=== PATIENT | female | born 1950 | race Caucasian/White ===

== ENCOUNTER → 2019-08-08 09:17 | Outpatient (CLI) | payer MEDICARE, SELFPAY ==
--- NOTE | ~2019-08-08 | XR_ITS ---
XR lumbar spine 6V w bending DATE: 08/08/2019 10:43 INDICATION: Low back pain TECHNIQUE: AP, lateral, bilateral oblique, coned lumbosacral views. Flexion and extension upright lat eral views. COMPARISON: None FINDINGS: There is minimal levoscoliosis of the lumbar spine. There is moderately prominent diffuse osteopenia. There is degenerative change that suggests facet joints particularly at L4-5 and L5-S1 with associate d grade 1 anterolisthesis at L4-5. Moderate degenerative disc disease at L4-5. The remaining lumbar interspaces are well preserved. No instability on flexion or extension. No fracture or bone destruction. The lumbar pedicles are intact. No spondylolysis. The sacroiliac joints are normal. There is abdominal aortic calcification, without evidence of aneurysm. IMPRESSION: Osteopenia Prominent degenerative changes at the apophyseal joints with associated grade 1 anterolisthesis at L4 -5 Moderate degenerative disc disease at L4-5 Reviewed, dictated and finalized at location B. IMPRESSION: Osteopenia Prominent degenerative changes at the apophyseal joints with associated grade 1 anterolisthesis at L4-5 Moderate degenerative disc disease at L4-5
--- NOTE | ~2019-08-08 | XR_ITS ---
XR cervical spine min 6V DATE: 08/08/2019 10:43 INDICATION: Neck pain TECHNIQUE: AP, odontoid, swimmer's, open-mouth, neutral, lateral flexion lateral views COMPARISON: None FINDINGS: There is reversal of cervical curvature. There is minimal anterolisthesis at C2-3. There is multi-level moderately severe There is uncovertebral joint spurring throughout the mid and lower cervical spine. Degenerative disc disease at C3-4, C4-5, C5-6 and C6-7. There is posterior fusion at C2-3. No fracture or dislocation or locked facet. C1 and C2 are normally aligned and the odontoid process is intact. No prevertebral soft tissue swelling. No instability on flexion or extension. IMPRESSION: Reversal cervical curvature Extensive degenerative changes from C3-4 through C6-7 Reviewed, dictated and finalized at location B.
== END ==
PROVIDERS: Visit Provider Chiropractor Rehabilitation
DX: M51.36 Other intervertebral disc degeneration, lumbar region (principal)
CPT/HCPCS: 72052; 72114

== ENCOUNTER → 2019-08-26 10:05 | Outpatient (CLI) | payer MEDICARE, SELFPAY ==
--- NOTE | ~2019-08-26 | MR_ITS ---
EXAMINATION: MR cervical spine wo con DATE: 08/26/2019 11:15 INDICATION: Cervical radiculopathy. TECHNIQUE: Magnetic resonance imaging (MRI) of the cervical spine was performed without intravenous c ontrast. Sequences included sagittal T2-weighted FSE, sagittal STIR FSE, sagittal T1-weighted FSE, ax ial MERGE, and axial T2-weighted FSE. COMPARISON: Cervical spine radiographs 08/08/2019 FINDINGS: There is kyphosis of cervical spine. There is 2 mm retrolisthesis of C3 on C4 and C6 on C7. Vertebral body heights are normal. There is severely decreased disc height at C3-C4, C5-C6, and C6-C 7 and moderately decreased disc height at C4-C5. The spinal cord signal intensity is normal. The foll owing disc levels are specifically discussed: C2-C3: The disc does not extend beyond the endplate margin. There is no uncovertebral joint osteoarth ritis. There is mild left facet joint osteoarthritis. There is ankylosis of right facet joint with mo derate hypertrophy. There is mild right neural foraminal stenosis. There is no central canal stenosis . C3-C4: The disc is bulging. There is severe bilateral uncovertebral joint osteoarthritis. There is se fernando bilateral facet joint osteoarthritis. There is moderate bilateral neural foraminal stenosis. The re is mild central canal stenosis with ventral indentation of spinal cord. C4-C5: The disc is bulging. There is severe bilateral uncovertebral joint osteoarthritis. There is mo derate right facet joint osteoarthritis. There is ankylosis of left facet joint with moderate hypertr ophy. There is mild right and moderate left neural foraminal stenosis. There is mild central canal st enosis. C5-C6: The disc is bulging. There is severe bilateral uncovertebral joint osteoarthritis. There is se fernando bilateral facet joint osteoarthritis. There is mild right and moderate left neural foraminal davin nosis. There is moderate central canal stenosis with ventral and dorsal indentation of spinal cord. C6-C7: The disc is bulging. There is severe bilateral uncovertebral joint osteoarthritis. There is se fernando bilateral facet joint osteoarthritis. There is moderate bilateral neural foraminal stenosis. The re is mild central canal stenosis. C7-T1: The disc does not extend beyond the endplate margin. There is no uncovertebral joint osteoarth ritis. There is severe bilateral facet joint osteoarthritis. There is mild bilateral neural foraminal stenosis. There is no central canal stenosis. IMPRESSION: 1. Severe cervical spondylosis. Reviewed, dictated and finalized at location A.
--- NOTE | ~2019-08-26 | MR_ITS ---
EXAMINATION: MR lumbar spine wo con DATE: 08/26/2019 11:16 INDICATION: Lumbar radiculopathy. TECHNIQUE: Magnetic resonance imaging (MRI) of the lumbar spine was performed without intravenous con trast. Sequences included sagittal T2-weighted FSE, sagittal T2-weighted FS FSE, sagittal T1-weighted FSE, and axial T2-weighted FSE. COMPARISON: Lumbar spine radiographs 08/08/2019 FINDINGS: There is 5 degrees levocurvature of thoracolumbar spine. There is 3 mm anterolisthesis of L 4 on L5. Vertebral body heights are normal. There is mildly decreased disc height at L4-L5. The dista l spinal cord signal intensity is normal. The conus medullaris is at L1. The following disc levels ar e specifically discussed: L1-L2: The disc does not extend beyond the endplate margin. There is mild bilateral facet joint osteo arthritis. There is no neural foraminal stenosis. There is no central canal stenosis. L2-L3: The disc is mildly bulging. There is moderate right and mild left facet joint osteoarthritis. There is mild bilateral neural foraminal stenosis. There is mild central canal stenosis. L3-L4: The disc is mildly bulging. There is moderate bilateral facet joint osteoarthritis. There is m ild bilateral neural foraminal stenosis. There is mild central canal stenosis. L4-L5: The disc is bulging. There is severe bilateral facet joint osteoarthritis. There is moderate b ilateral neural foraminal stenosis. There is mild central canal stenosis. L5-S1: The disc does not extend beyond the endplate margin. There is severe bilateral facet joint ost eoarthritis. There is mild left neural foraminal stenosis. There is no central canal stenosis. IMPRESSION: 1. Moderate spondylosis at L4-L5. Mild spondylosis at other levels. Reviewed, dictated and finalized at location A.
== END ==
DX: M47.22 Other spondylosis with radiculopathy, cervical region (principal); M47.816 Spondylosis without myelopathy or radiculopathy, lumbar region
CPT/HCPCS: 72141; 72148

== ENCOUNTER 2020-08-29 09:07 | Outpatient (CLI) | payer MEDICARE, SELFPAY ==
--- NOTE | ~2020-08-29 | CT_ITS ---
EXAMINATION: CT lung screening DATE: 08/29/2020 09:25 INDICATION: History of tobacco dependence TECHNIQUE: Computed tomography (CT) of the chest was performed without intravenous contrast. The dose -length product was 89.17 mGy-cm. Automated exposure control and iterative reconstruction technique w ere employed. COMPARISON: Chest x-ray dated 11/23/2013 FINDINGS: Heart size is normal. There is atherosclerosis of the aorta and coronary arteries. No signi ficant pleural or pericardial effusion. No thoracic lymphadenopathy. There are multiple scattered sma ll bilateral pulmonary nodules, all measuring 4 mm or less. There is apical pleural thickening/scarri ng. There is a linear fissural nodule on the left, likely benign. Mild emphysema. No endobronchial le sions. IMPRESSION: 1. Lung-RADS category 2: Benign appearance or behavior. Continue annual screening with noncontrast lo w-dose chest CT in 12 months. Reviewed, dictated and finalized at location B. IMPRESSION: 1. Lung-RADS category 2: Benign appearance or behavior. Continue annual screeni ng with noncontrast low-dose chest CT in 12 months.
== END 2020-08-29 09:08 | disposition home or self-care (01) ==
PROVIDERS: PCP Family Medicine; Visit Provider Family Medicine
DX: Z12.2 Encounter for screening for malignant neoplasm of respiratory organs (principal); Z87.891 Personal history of nicotine dependence
CPT/HCPCS: 71271

== ENCOUNTER 2020-12-28 16:50 | Emergency (ER) | payer MEDICARE, SELFPAY ==
--- NOTE | ~2020-12-28 | XR_ITS ---
EXAMINATION: XR foot LT min 3V DATE: 12/28/2020 17:03 INDICATION: Left foot pain TECHNIQUE: Dorsoplantar, lateral, and 2 oblique views of the left foot were obtained. COMPARISON: None. FINDINGS: Bone alignment is normal. There is no acute fracture mild deformity of the third metatarsal head may reflect prior injury. There is mild osteoarthritis in multiple interphalangeal joints. Mode rate osteoarthritis is noted at the first metatarsophalangeal joint. There is dorsal soft tissue swel ling of the foot. IMPRESSION: 1. No acute osseous abnormality. Reviewed, dictated and finalized at location A.
[2020-12-28 17:03] VITALS: BP 157/84; PULSE 111; RESP 18; TEMP 36.6; O2SAT 100
--- NOTE | 2020-12-28 17:23 | ED.LOWEXIN ---
HPI - Extremity Injury (Lower) General Chief Complaint: Extremity Injury, Lower Stated Complaint: lt foot injury Source: patient and RN notes reviewed Limitations: no limitations History of Present Illness HPI Narrative: The patient, on several medications, presents with left ankle discomfort. Patient states she slipped this morning on rain slick surfaces, resulting in flexion of her left lower extremity and twisting and scraping her ankle. She complains of mild pain and abrasion, that is worse with activity, better at rest especially on the lateral and extensor retinaculum aspects. No bleeding, deformity, but there are abrasions Related Data Home Medications Medication Instructions Recorded Confirmed omeprazole 20 mg capsule,delayed 20 mg PO DAILY 02/28/20 12/28/20 release Allergies Allergy/AdvReac Type Severity Reaction Status Date / Time No Known Allergies Allergy Verified 12/28/20 16:57 Review of Systems Review of Systems: General/Constitutional: No weight loss,fever Eyes: N0: Redness,discharge Ears/Nose/Throat: No: Epistaxis,ear discharge Respiratory: Denies: Hemoptysis Gastrointestinal: No Vomiting, Bleeding-rectal Skin: No Lumps, eruption Neurologic: No Focal Weakness,Sz Hematologic: Denies: Petechiae/Purpura Psychiatric: No: Suicida ideationl All Other Systems: Reviewed and Negative PMF Past Medical History Medical History Chronic neck and back pain Dyslipidemia Essential (primary) hypertension GERD without esophagitis Hiatal hernia Hyperactivity of bladder Hypothyroidism (acquired) Irritable bowel syndrome with diarrhea Numbness and tingling of right lower extremity (~02/23/19) Periodic limb movement disorder Pre-diabetes Right carpal tunnel syndrome RLS (restless legs syndrome) Schatzki's ring Surgical History Surgical History Hx of hysterectomy, total (~1994) Family History Family History Other Hypertension Social History Social History Smoking packs per day: 0.75 Smoking cigarettes per day: 15.0 Years smoked: 50 Smoking pack-years: 37.50 Smoking status: Current every day smoker Tobacco type: cigarettes Second hand tobacco smoke exposure: Yes Alcohol intake: current Comments At time of signature, agree with nursing past medical, surgical, social and family history. There is no relevant family history pertinent to the presenting complaint Exam Narrative: General Appearance: Well appearing, Conjunctiva clear Ears: External ear normal, Auditory canal normal Nose: Normal nose, Nares clear Mouth/Throat: Normal appearing, Normal lips Neck: Supple Respiratory: Airway patent, No respiratory distress MS-ankle: Normal strength (mostly intact, limited flexion/extension by pain), Tenderness ( laterally, with mild decreased ROM), Scant swelling (laterally), Other (no anterior drawer, no collateral laxity, no Achilles tenderness, no fifth MT tenderness) Skin: Warm, Dry, Normal color; abrasions extensor retinaculum area Neurological: A&O x3, Normal affect Course Course Emergency Course: Films visualized, interpreted by radiologist, agree, normal see report Vital Signs Vital signs: Vital Signs Temperature 97.8 F 12/28/20 17:03 Pulse Rate 111 H 12/28/20 17:03 Respiratory Rate 18 12/28/20 17:03 Blood Pressure 157/84 H 12/28/20 17:03 Pulse Oximetry 100 12/28/20 17:03 Temperature 97.8 F 12/28/20 17:03 Pulse Rate 111 H 12/28/20 17:03 Respiratory Rate 18 12/28/20 17:03 Blood Pressure 157/84 H 12/28/20 17:03 Pulse Oximetry 100 12/28/20 17:03 Discharge Plan Discharge Clinical Impression: Left ankle sprain Qualifiers: Encounter type: initial encounter Involved ligament of ankle: unspecified
== END 2020-12-28 17:25 | disposition home or self-care (01) ==
PROVIDERS: Emergency Provider Emergency Medicine; PCP Family Medicine
DX: S93.402A Sprain of unspecified ligament of left ankle, initial encounter (principal); W01.0XXA Fall on same level from slipping, tripping and stumbling without subsequent striking against object, initial encounter; F17.210 Nicotine dependence, cigarettes, uncomplicated; E78.5 Hyperlipidemia, unspecified; I10 Essential (primary) hypertension; K21.9 Gastro-esophageal reflux disease without esophagitis; E03.9 Hypothyroidism, unspecified; R73.03 Prediabetes; G25.81 Restless legs syndrome; K22.2 Esophageal obstruction
CPT/HCPCS: 73630; 99213; G0463

== ENCOUNTER 2022-03-05 09:54 | Outpatient (CLI) | payer MEDICARE, SELFPAY ==
[2022-03-05 19:14] LABS: Alanine Aminotransferase 19 U/L (6-35); Albumin Level 4.3 g/dL (3.5-5.1); Alkaline Phosphatase 65 U/L (38-126); Anion Gap 9 mmol/L (8-16); Aspartate Amino Transferase 30 U/L (14-36); Bilirubin,Total 0.6 mg/dL (0.2-1.3); Blood Urea Nitrogen 15 mg/dL (7-17); Calcium 9.7 mg/dL (8.4-10.2); Carbon Dioxide 29 mmol/L (22-30); Chloride 102 mmol/L (98-107); Cholesterol 199 mg/dL (0-200); Estimated Glomerular Filt Rate > 60; Glucose 106 mg/dL (65-110); HDL Direct 44 mg/dL; Potassium 3.9 mmol/L (3.4-5.0); Sodium 140 mmol/L (137-145); Triglycerides 177 mg/dL (<150)
[2022-03-05 19:15] LABS: Hemoglobin A1C 5.8 % (<5.7)
[2022-03-05 19:23] LABS: Basophils Absolute Auto 0.1 K/mm3 (0.0-0.1); Basophils Percent Auto 0.6 % (0.2-1.2); Eosinophils Absolute Auto 0.1 K/mm3 (0-0.3); Eosinophils Percent Auto 1.4 % (0-4.4); Hematocrit 47.7 % (37.0-47.0); Hemoglobin 15.5 g/dL (12.0-15.0); Immature Granulocyte Absolute 0.02 K/mm3 (0.00-0.031); Immature Granulocyte Percent A 0.3 % (0-0.5); Lymphocytes Absolute Auto 1.73 K/mm3 (0.9-3.2); Lymphocytes Percent Auto 22.2 % (18.3-44.2); Mean Corpuscular HGB Conc 32.5 g/dl (32-36); Mean Corpuscular Hemoglobin 31.1 pg (26-34); Mean Corpuscular Volume 95.6 fl (80-100); Mean Platelet Volume 11.7 fl (7.4-10.4); Monocytes Absolute Auto 0.9 K/mm3 (0.1-0.6); Monocytes Percent Auto 11.7 % (2.6-8.5); Neutrophils Percent Auto 63.8 % (45.5-73.1); Platelet Count Result 225 k/mm3 (150-375); Red Blood Count 4.99 M/mm3 (4.2-5.4); Red Cell Distribution Width 14.4 % (11.5-14.5); White Blood Count 7.8 K/mm3 (4.5-10.0)
[2022-03-05 19:25] LABS: LDL Cholesterol Direct 113 mg/dL
[2022-03-05 20:08] LABS: Thyroid Stimulating Hormone Reflex 0.557 uIU/mL (0.465-4.68)
== END 2022-03-05 09:55 | disposition home or self-care (01) ==
LOC: ANHGOSHLAB 09:57
PROVIDERS: PCP Family Medicine; Visit Provider Family Medicine
DX: R73.03 Prediabetes (principal); E78.5 Hyperlipidemia, unspecified; G25.81 Restless legs syndrome; E53.8 Deficiency of other specified B group vitamins; E55.9 Vitamin D deficiency, unspecified; I10 Essential (primary) hypertension
CPT/HCPCS: 36415; 80053; 80061; 82306; 82607; 83036; 84443; 85025

== ENCOUNTER → 2022-03-13 08:20 | Outpatient (CLI) | payer MEDICARE, SELFPAY ==
--- NOTE | ~2022-03-13 | CT_ITS ---
EXAMINATION: CT lung screening DATE: 03/13/2022 08:33 INDICATION: Personal history of nicotine dependence, current smoker with 50 pack year history TECHNIQUE: Computed tomography (CT) of the chest was performed without intravenous contrast. The dose -length product (DLP) was 46.56 mGy-cm. Automated exposure control and iterative reconstruction techn ique were employed. COMPARISON: 08/29/2020 FINDINGS: There is mild emphysema. A 6 mm subpleural nodule of the right lower lobe previously measur ed 3 mm (image 76). Additional small pulmonary nodules measuring up to 4 mm are stable. No pleural ef fusion or pneumothorax. The lungs are free of acute opacities. No pathologically enlarged thoracic ly mph nodes are identified. The heart size is normal. Calcified coronary artery atherosclerosis is note d. There is moderate thoracic spondylosis. IMPRESSION: 1. Lung-RADS category 4A: Suspicious. Findings for which additional diagnostic testing is recommended . Follow-up low-dose CT in three months is recommended. Reviewed, dictated and finalized at location F. IMPRESSION: 1. Lung-RADS category 4A: Suspicious. Findings for which additional diagnostic testing is recommended. Follow-up low-dose CT in three months is recommended.
== END ==
PROVIDERS: PCP Family Medicine; Visit Provider Family Medicine
DX: Z12.2 Encounter for screening for malignant neoplasm of respiratory organs (principal); Z87.891 Personal history of nicotine dependence; R91.8 Other nonspecific abnormal finding of lung field
CPT/HCPCS: 71271

== ENCOUNTER 2022-04-28 09:50 | Outpatient (CLI) | payer MEDICARE, SELFPAY ==
--- NOTE | 2022-04-28 11:30 | NEURO_ITS ---
Impression: # Complains of numbness of hands. # Right Carpal Tunnel Syndrome involving sensory component. # No ulnar neuropathy. # Normal needle/EMG exam. Motor Nerve Conduction Upper Extremities Median Nerve Conduction Velocity (m/sec) Terminal Latency (msec) Response Voltage(mV) Elbow-Wrist Wrist Elbow Wrist Right 56 3.8 3 3 Left 58 3.5 5 5 Ulnar Nerve Conduction Velocity (m/sec) Terminal Latency (msec) Response Voltage(mV) Above Elbow Below Elbow Wrist Above Elbow Below Elbow Wrist Right 55 2.4 7 8 Left 56 2.7 6 8 F-Wave Latency Median (ms) Ulnar (ms) Right 28.8 28.3 Left 27.6 28.9 Sensory Nerve Conduction Upper Extremities Median Nerve Stimulation Terminal Latency (msec) Wrist/Digit Response Voltage (uV) Wrist Right NR/NR NR/NR Left 3.8/3.8 53/53 Ulnar Nerve Stimulation Terminal Latency (msec) Wrist/Digit Response Voltage (uV) Wrist Right 2.5 39 Left 2.4 49 Radial Nerve Terminal Latency (msec) Response Voltage(mV) Right 2.2 34 Left 2.0 14 Left Right Muscles Examined Fibrillation Fasciculation Scarcity Voltage Duration Left Right Left Right Left Right Left Right Left Right Deltoid Biceps X X Brachioradialis Triceps X X Pronator Teres X X Ext Indicis X X Ext Digitorum X X Abd Poll Brev X X 1st Dorsal Interosseus Paraspinals MTDD
== END 2022-04-28 09:51 | disposition home or self-care (01) ==
LOC: ANHNEURO 09:52
PROVIDERS: PCP Family Medicine; Visit Provider Family Medicine
DX: R20.0 Anesthesia of skin (principal); G56.01 Carpal tunnel syndrome, right upper limb
CPT/HCPCS: 95886; 95911

== ENCOUNTER → 2022-06-26 08:19 | Outpatient (CLI) | payer MEDICARE, SELFPAY ==
--- NOTE | ~2022-06-26 | CT_ITS ---
Clinical Indication: Abnormal CT scan of the chest, nicotine dependence CT Scan of the Chest with Contrast: Technique: Contiguous sections were acquired throughout the chest after intravenous administration of 75 cc of Omnipaque 350. Dose reduction technique was used on this scan by utilizing automated exposu re control and iterative reconstruction technique. The dose-length product (DLP) was 184.62 mGy-cm. COMPARISON: 03/13/2022 and 08/29/2020 Findings: There is no evidence of any significant mediastinal, hilar or axillary lymphadenopathy. There is no f illing defect in the pulmonary arterial tree to suggest pulmonary embolus. There is no evidence of ao rtic dissection or aneurysm. Coronary artery calcifications are present. There is no evidence of pleural or pericardial effusion. 6 mm pleural-based nodule the right lower lobe is unchanged from prior exam (axial image 71). Additio nal 5 mm pleural-based nodule more inferiorly in the right lower lobe is also unchanged (axial image 98). Several additional smaller pulmonary nodules are unchanged. Biapical scarring unchanged. Images through the upper abdomen reveal 4.0 x 3.1 cm left adrenal mass, which was partially imaged on prior exam from 08/29/2020.. Impression: Subcentimeter pulmonary nodules, as detailed above, stable from most recent prior exam. Recommend add itional 12 month follow-up CT to assure continued stability. 4.0 x 3.1 cm left adrenal mass. This is partially imaged on prior exam from 08/29/2020, and is probabl y without significant interval change. Relative stability over this time interval is compatible with benignity. Reviewed, dictated and finalized at [facility]. ROGRAPHER Impression: Subcentimeter pulmonary nodules, as detailed above, stable from most recent julieta or exam. Recommend additional 12 month follow-up CT to assure continued stabili ty. 4.0 x 3.1 cm left adrenal mass. This is partially imaged on prior exam from 08/01, and is probably without significant interval change. Relative stability over this time interval is compatible with benignity.
[2022-06-26 08:43] LABS: Estimated Glomerular Filt Rate > 60
== END ==
PROVIDERS: PCP Family Medicine; Visit Provider Family Medicine
DX: R91.8 Other nonspecific abnormal finding of lung field (principal); E27.8 Other specified disorders of adrenal gland
CPT/HCPCS: 71260; Q9967

== ENCOUNTER 2022-09-10 09:27 | Outpatient (CLI) | payer MEDICARE, SELFPAY ==
[2022-09-10 19:24] LABS: Alanine Aminotransferase 18 U/L (6-35); Albumin Level 4.5 g/dL (3.5-5.1); Alkaline Phosphatase 59 U/L (38-126); Anion Gap 4 mmol/L (8-16); Aspartate Amino Transferase 28 U/L (14-36); Bilirubin,Total 0.8 mg/dL (0.2-1.3); Blood Urea Nitrogen 18 mg/dL (7-17); Calcium 9.8 mg/dL (8.4-10.2); Carbon Dioxide 32 mmol/L (22-30); Chloride 102 mmol/L (98-107); Estimated Glomerular Filt Rate > 60; Glucose 108 mg/dL (65-110); Potassium 4.4 mmol/L (3.4-5.0); Sodium 138 mmol/L (137-145)
[2022-09-10 19:52] LABS: Hemoglobin A1C 5.8 % (<5.7)
[2022-09-10 20:19] LABS: Free T4 Free Thyroxine Reflex 1.45 ng/dL (0.78-2.19)
[2022-09-10 21:05] LABS: Total Triiodothyronine (T3) 1.04 NG/ML (0.97-1.69)
== END 2022-09-10 09:28 | disposition home or self-care (01) ==
LOC: ANHGOSHLAB 09:28
PROVIDERS: PCP Family Medicine; Visit Provider Family Medicine
DX: I10 Essential (primary) hypertension (principal); E03.9 Hypothyroidism, unspecified; R73.03 Prediabetes
CPT/HCPCS: 36415; 80053; 83036; 84439; 84443; 84480

== ENCOUNTER 2022-10-30 00:11 | Day surgery (SDC) | payer MEDICARE, SELFPAY ==
[2022-10-13 14:27] VITALS: BMI 21.2
[2022-10-30 08:22] VITALS: BP 133/79; PULSE 86; RESP 17; TEMP 36.4; O2SAT 99
[2022-10-30] MEDS: LACTATED RINGERS 1,000 ML 150 ML IV CONT (08:32)
--- NOTE | 2022-10-30 08:54 | PM.HPGS ---
History of Present Illness History of Present Illness Consent: Risks, benefits, and alternatives have been discussed and questions answered. Patient agrees to proceed with procedure. Chief complaint: neoplasm screening Narrative: Sarahi Hollingsworth is a 72 year old female Presents for colonoscopy. Patient's current weight appetite and bowel movements are normal. Patient denies abdominal pain. She has had no bleeding. Patient has had previous colonoscopies in [place]. Most recent colonoscopy 5 years ago was unremarkable. She does have a prior history of colon polyps. Patient reports that her bowel habits are currently normal with no bleeding she presents today for neoplasia screening. Review of Systems Review of Systems: Review of systems noncontributory. [facility] Past Medical History Medical History Chronic neck and back pain (~03/2022) COVID-19 Dyslipidemia Essential (primary) hypertension GERD without esophagitis Hiatal hernia Hypothyroidism (acquired) Irritable bowel syndrome with diarrhea Pre-diabetes Right carpal tunnel syndrome RLS (restless legs syndrome) Schatzki's ring Surgical History Surgical History Hx of hysterectomy, total (~1994) Family History Family History Other Hypertension Social History Social History Smoking packs per day: 1 Smoking cigarettes per day: 20.0 Years smoked: 50 Smoking pack-years: 50.00 Smoking status: Current every day smoker Tobacco type: cigarettes Second hand tobacco smoke exposure: Yes Alcohol intake: current Alcohol use details: socially-2 glasses of wine/month Substance use: never Substance use type: does not use Lack of Transportation: No Lack of Food: Never True Current Housing: I Have Housing Concerned About Future Housing: No Difficulty Paying Gas/Electric Bills: No Difficulty Paying for Meds: No Currently Unemployed: No Education: High School Diploma/GED Difficulty w/ Childcare or Family Care: No Living arrangements: with family Additional living arrangements comments: Occupation/Education: retired Gender identity (if verbalized by the patient): Female Spiritual care concerns: No Meds Home Medications and Allergies Home Medications Medication Instructions Recorded Confirmed Type amlodipine 5 mg tablet 5 mg PO DAILY #90 tabs 05/06/22 10/13/22 Rx benazepril 20 mg tablet 20 mg PO DAILY #90 tabs 05/06/22 10/13/22 Rx metoprolol succinate 50 mg 50 mg PO DAILY #90 tabs 05/06/22 10/13/22 Rx tablet,extended release 24 hr triamterene 37.5 1 cap PO DAILY #90 caps 05/06/22 10/13/22 Rx mg-hydrochlorothiazide 25 mg capsule pravastatin 20 mg tablet 20 mg PO QHS #90 tabs 06/12/22 10/13/22 Rx pravastatin 40 mg tablet 40 mg PO QHS #90 tabs 06/12/22 10/13/22 Rx levothyroxine 112 mcg tablet 112 mcg PO QAM #90 tabs 07/04/22 10/13/22 Rx Allergies Allergy/AdvReac Type Severity Reaction Status Date / Time No Known Allergies Allergy Verified 10/30/22 08:20 Vital Signs Vital Signs - 24 hr 10/30/22 08:22 Temperature 97.6 F Pulse Rate 86 Respiratory Rate 17 Blood Pressure 133/79 Pulse Oximetry 99 Oxygen Delivery Room Air Exam Narrative: Physical exam reveals patient to be alert. Vital signs stable. HEENT exam is unremarkable. Patient is anicteric. Lungs are clear to auscultation and percussion. Heart is without murmur or extra sounds. Abdomen bowel sounds are present soft nontender with no organomegaly. Digital external rectal exam is normal. Assessment and Plan Assessment and plan (1) History of colon polyps: Code(s): Z86.010 - Personal history of colonic polyps Status: Acute Assessment and Plan: Patient has a history
--- NOTE | 2022-10-30 09:15 | WPDANESEPPF ---
Anes - Initial Pre Proc Eval Procedure: Operation Date: 10/30/22 09:45 Proposed Procedures p Screening Colonoscopy - Anish Montana MD Date/Time: 10/30/22 09:15 Surgeon: Anish Montana MD Pre Op Diagnosis: neoplasm screening Patient Data Age: 72 Gender: F Height: 1.65 m Weight: 56.1 kg Last Vital Signs Temp 97.6 F 10/30/22 08:22 Pulse 86 10/30/22 08:22 Resp 17 10/30/22 08:22 BP 133/79 10/30/22 08:22 Pulse Ox 99 10/30/22 08:22 O2 Del Method Room Air 10/30/22 08:22 Allergies Allergy/AdvReac Type Severity Reaction Status Date / Time No Known Allergies Allergy Verified 10/30/22 08:20 Home Medications Medication Instructions Recorded Confirmed Type amlodipine 5 mg tablet 5 mg PO DAILY #90 tabs 05/06/22 10/13/22 Rx benazepril 20 mg tablet 20 mg PO DAILY #90 tabs 05/06/22 10/13/22 Rx metoprolol succinate 50 mg 50 mg PO DAILY #90 tabs 05/06/22 10/13/22 Rx tablet,extended release 24 hr triamterene 37.5 1 cap PO DAILY #90 caps 05/06/22 10/13/22 Rx mg-hydrochlorothiazide 25 mg capsule pravastatin 20 mg tablet 20 mg PO QHS #90 tabs 06/12/22 10/13/22 Rx pravastatin 40 mg tablet 40 mg PO QHS #90 tabs 06/12/22 10/13/22 Rx levothyroxine 112 mcg tablet 112 mcg PO QAM #90 tabs 07/04/22 10/13/22 Rx Patient hx anesthesia problems: none Family hx anesthesia problems: none Results Review: All pre-operative results and documents have been reviewed as part of the pre-operative evaluation. [facility] Past Medical History Medical History Chronic neck and back pain (~03/2022) COVID-19 Dyslipidemia Essential (primary) hypertension GERD without esophagitis Hiatal hernia Hypothyroidism (acquired) Irritable bowel syndrome with diarrhea Pre-diabetes Right carpal tunnel syndrome RLS (restless legs syndrome) Schatzki's ring Surgical History Surgical History Hx of hysterectomy, total (~1994) Family History Family History Other Hypertension Social History Social History Smoking packs per day: 1 Smoking cigarettes per day: 20.0 Years smoked: 50 Smoking pack-years: 50.00 Smoking status: Current every day smoker Tobacco type: cigarettes Second hand tobacco smoke exposure: Yes Alcohol intake: current Alcohol use details: socially-2 glasses of wine/month Substance use: never Substance use type: does not use Lack of Transportation: No Lack of Food: Never True Current Housing: I Have Housing Concerned About Future Housing: No Difficulty Paying Gas/Electric Bills: No Difficulty Paying for Meds: No Currently Unemployed: No Education: High School Diploma/GED Difficulty w/ Childcare or Family Care: No Living arrangements: with family Additional living arrangements comments: Occupation/Education: retired Gender identity (if verbalized by the patient): Female Spiritual care concerns: No Anes - Eval Final PreProcedure Day of Procedure 10/30/22 09:15 Patient weight: normal Heart: regular rate and rhythm Lungs: clear to auscultation Airway: Mallampati scale class II Neurological: alert and oriented Last oral intake: >/= 8 hours ASA classification: III Emergent: no Anesthetic plan: proceed Anesthesia type and monitoring: general GIVS and standard monitoring Results Review: All pre-operative results and documents have been reviewed as part of the pre-operative evaluation. Informed Consent: The patient's anesthetic plan and its attendant risks and benefits were discussed with the patient/family/POA. Questions were solicited and answers provided to the satisfaction of the patient/family/POA.
[2022-10-30 09:57] VITALS: BP 96/59; PULSE 62; RESP 17; O2SAT 98
[2022-10-30 10:07] VITALS: BP 98/65; PULSE 62; RESP 17; O2SAT 99
[2022-10-30 10:17] VITALS: BP 118/72; PULSE 54; RESP 12; O2SAT 99
== END 2022-10-30 10:30 | disposition home or self-care (01) ==
PROVIDERS: PCP Family Medicine; Visit Provider Internal Medicine Gastroenterology
PROC: 0DJD8ZZ Inspection of Lower Intestinal Tract, Via Natural or Artificial Opening Endoscopic (ICD-10-PCS; CPT 45378; principal; 2022-10-30 09:45)
DX: Z12.11 Encounter for screening for malignant neoplasm of colon (principal); K64.8 Other hemorrhoids; K57.30 Diverticulosis of large intestine without perforation or abscess without bleeding; D12.2 Benign neoplasm of ascending colon; K58.0 Irritable bowel syndrome with diarrhea; I10 Essential (primary) hypertension; E78.5 Hyperlipidemia, unspecified; K21.9 Gastro-esophageal reflux disease without esophagitis; E03.9 Hypothyroidism, unspecified; F17.210 Nicotine dependence, cigarettes, uncomplicated
CPT/HCPCS: 45385; 88305; J2704; J7120

== ENCOUNTER 2022-10-31 15:37 | Outpatient (CLI) | payer MEDICARE, SELFPAY | END 2022-10-31 15:38 | disposition home or self-care (01) | LOC: ANHGOSHLAB 15:40 | PROVIDERS: PCP Family Medicine; Visit Provider Family Medicine | DX: E03.9 Hypothyroidism, unspecified (principal) | CPT/HCPCS: 36415; 84443 ==

== ENCOUNTER → 2023-01-09 08:47 | Outpatient (CLI) | payer MEDICARE, SELFPAY ==
--- NOTE | ~2023-01-09 | CT_ITS ---
EXAMINATION: CT abdomen wo/w con DATE: 01/09/2023 09:25 INDICATION: Pheochromocytoma TECHNIQUE: Computed tomography (CT) of the abdomen was performed without and with 100 mL Omnipaque-35 0 intravenous contrast. Automated exposure control and iterative reconstruction technique were employ ed. The dose-length product was 499.66 mGy-cm. COMPARISON: Abdomen MRI dated 11/19/2010 FINDINGS: Atelectasis in the lingula and right middle lobe. Arch size is normal. No pericardial or pleural effu bhavna. Liver, gallbladder, spleen, pancreas and right adrenal gland are normal. Interval increase in s ize of a previous 2.4 x 2.1, currently 4.1 x 3.3 cm left renal mass with heterogeneous enhancement pa ttern but marked T2 hyperintensity, the latter finding suggestive of pheochromocytoma. There are a fe w bilateral subcentimeter nonenhancing renal cysts. Visualized portion of the bowels are unremarkable . No pathologically enlarged abdominal lymphadenopathy. Atherosclerotic calcifications along the norm al caliber abdominal aorta and bilateral common iliac arteries. Mild lumbar and lower thoracic spondy losis with 3 mm anterolisthesis L4 on L5 and associated severe bilateral facet osteoarthritis. IMPRESSION: 1. 4.1 x 3.3 cm left adrenal mass which is demonstrates slow growth dating back to 2010 consistent wi th a benign etiology. While MRI imaging features are nonspecific, the marked T2 hyperintensity favors the provided history of pheochromocytoma. Reviewed, dictated and finalized at location B. IMPRESSION: 1. 4.1 x 3.3 cm left adrenal mass which is demonstrates slow growth dating back to 2010 consistent with a benign etiology. While MRI imaging features are nons pecific, the marked T2 hyperintensity favors the provided history of pheochromo cytoma.
[2023-01-09 09:03] LABS: Estimated Glomerular Filt Rate > 60
== END ==
PROVIDERS: PCP Urology; Visit Provider Urology
DX: D35.02 Benign neoplasm of left adrenal gland (principal)
CPT/HCPCS: 74170; Q9967

== ENCOUNTER 2023-03-17 08:29 | Outpatient (CLI) | payer MEDICARE, SELFPAY ==
[2023-03-17 18:42] LABS: Alanine Aminotransferase 17 U/L (6-35); Albumin Level 4.2 g/dL (3.5-5.1); Alkaline Phosphatase 53 U/L (38-126); Anion Gap 3 mmol/L (8-16); Aspartate Amino Transferase 27 U/L (14-36); Blood Urea Nitrogen 15 mg/dL (7-17); Calcium 9.3 mg/dL (8.4-10.2); Carbon Dioxide 30 mmol/L (22-30); Chloride 103 mmol/L (98-107); Cholesterol 181 mg/dL (0-200); Estimated Glomerular Filt Rate > 60; Glucose 93 mg/dL (65-110); HDL Direct 55 mg/dL; Potassium 4.1 mmol/L (3.4-5.0); Sodium 136 mmol/L (137-145); Triglycerides 118 mg/dL (<150)
[2023-03-17 18:53] LABS: LDL Cholesterol Direct 94 mg/dL
[2023-03-17 19:24] LABS: Vitamin D 25 Hydroxy 50.5 ng/mL
[2023-03-17 19:25] LABS: Hemoglobin A1C 5.4 % (<5.7)
[2023-03-17 19:31] LABS: Basophils Percent Auto 0.6 % (0.2-1.2); Eosinophils Absolute Auto 0.2 K/mm3 (0-0.3); Eosinophils Percent Auto 2.8 % (0-4.4); Hematocrit 42.4 % (37.0-47.0); Hemoglobin 13.6 g/dL (12.0-15.0); Immature Granulocyte Absolute 0.01 K/mm3 (0.00-0.031); Immature Granulocyte Percent A 0.2 % (0-0.5); Lymphocytes Absolute Auto 1.53 K/mm3 (0.9-3.2); Lymphocytes Percent Auto 23.7 % (18.3-44.2); Mean Corpuscular HGB Conc 32.1 g/dl (32-36); Mean Corpuscular Hemoglobin 31.3 pg (26-34); Mean Corpuscular Volume 97.5 fl (80-100); Mean Platelet Volume 12.1 fl (7.4-10.4); Monocytes Absolute Auto 0.6 K/mm3 (0.1-0.6); Monocytes Percent Auto 9.6 % (2.6-8.5); Neutrophils Absolute Auto 4.1 K/mm3 (1.3-6.7); Neutrophils Percent Auto 63.1 % (45.5-73.1); Platelet Count Result 188 k/mm3 (150-375); Red Blood Count 4.35 M/mm3 (4.2-5.4); Red Cell Distribution Width 14.6 % (11.5-14.5); White Blood Count 6.5 K/mm3 (4.5-10.0)
== END 2023-03-17 08:30 | disposition home or self-care (01) ==
PROVIDERS: PCP Family Medicine; Visit Provider Family Medicine
DX: R73.9 Hyperglycemia, unspecified (principal); I10 Essential (primary) hypertension; R73.03 Prediabetes; E55.9 Vitamin D deficiency, unspecified; C74.92 Malignant neoplasm of unspecified part of left adrenal gland; E78.5 Hyperlipidemia, unspecified; E03.9 Hypothyroidism, unspecified; E53.8 Deficiency of other specified B group vitamins
CPT/HCPCS: 36415; 80053; 80061; 82306; 82607; 83036; 84443; 85025

== ENCOUNTER 2023-03-31 11:52 | Outpatient (CLI) | payer MEDICARE, SELFPAY ==
--- NOTE | ~2023-03-31 | DEXA_ITS ---
Bone Density Report Name: ANDRES SALMON Age: 72 Sex: Female Ethnicity: White Date of : 1950 Indication: postmenopausal; screening for osteoporosis; height loss; inflammatory bowel disease; hysterectomy; Referring Provider: MEGA SLOAN Study: Bone densitometry was performed. Exam Date: March 31, 2023 Accession number: [id number] Bone Density: Region BMD T-score Z-score Classification AP Spine(L1, L2, L3) 1.058 0.4 2.5 Normal Femoral Neck (Left) 0.740 -1.0 0.9 Normal Total Hip (Left) 0.893 -0.4 1.1 Normal Femoral Neck (Right) 0.728 -1.1 0.8 Osteopenia Total Hip (Right) 0.886 -0.5 1.1 Normal Femoral Neck Mean 0.734 -1.0 0.8 Normal Total Hip Mean 0.889 -0.4 1.1 Normal World Health Organization criteria for BMD impression classify patients as: Normal (T-score at or above -1.0), Osteopenia (T-score between -1.0 and -2.5), or Osteoporosis (T-score at or below -2.5). 10-year Fracture Risk(1): Major Osteoporotic Fracture 8.4% Hip Fracture 1.7% Reported Risk Factors: [place] (), Neck BMD=0.728, BMI=21.6, smoking (1) FRAX(R) Version 3.08. Fracture probability calculated for an untreated patient. Fracture probability may be lower if the patient has received treatment. Clinical Information Provided by Patient: Smokes Has used the following medications: Vitamin D, Calcium Has the following medical conditions: Inflammatory bowel diseases, Hysterectomy Patient maximum height was 66 Menopause Age: 47 Drinks caffeinated beverages Onset of menses at age 13 Number of children 4 Impression: The patient has low bone mass, based on the Right Femoral Neck T-score. The patient has risk factors, including: smoking. Discussion: BONE DENSITY IS LOW AT ONE OR MORE SKELETAL SITES. This patient's lowest T-score is low at one or more skeletal sites. It meets the World Health Organization's (WHO) criteria for ?low bone mass? (T-score between -1.0 and -2.5). The patient's 10-year risk of fracture as calculated by FRAX is less than the threshold where pharmacological therapy is recommended by the National Osteoporosis Foundation (NOF). However, all treatment decisions require clinical judgment and consideration of individual patient factors, including patient preferences, comorbidities, previous drug use, risk factors not captured in the FRAX model (e.g., frailty, falls, vitamin D deficiency, increased bone turnover, interval significant decline in bone density) and possible under or overestimation of fracture risk by FRAX. The patient should follow a healthful lifestyle (good nutrition with adequate calcium and vitamin D, and appropriate weight-bearing exercise). Follow-Up: Consider repeating this study in 2 to 3 years to reassess this patient's status, or soon
== END 2023-03-31 11:53 | disposition home or self-care (01) ==
LOC: CHSIMG 11:53
PROVIDERS: PCP Family Medicine; Visit Provider Family Medicine
DX: Z78.0 Asymptomatic menopausal state (principal); M85.89 Other specified disorders of bone density and structure, multiple sites
CPT/HCPCS: 77080

== ENCOUNTER 2023-05-22 18:00 | Emergency (ER) | payer MEDICARE, SELFPAY ==
--- NOTE | ~2023-05-22 | CT_ITS ---
EXAMINATION: CT brain wo con DATE: 05/22/2023 20:53 INDICATION: Fall. Patient struck her head on rocks. Right forehead laceration. TECHNIQUE: Computed tomography (CT) of the head was performed without intravenous contrast. The mA wa s adjusted according to patient size. Iterative reconstruction technique was employed. Exam dose: 60 5.33 mGy-cm total exam DLP. COMPARISON: None FINDINGS: No intracranial mass lesion or hemorrhage or cerebrovascular accident is evident. No midlin e shift or mass effect. Bilateral carotid siphon internal carotid artery calcifications as well as vertebral basilar artery c alcification. There is nonspecific diminished attenuation of the cerebral white matter, likely due to chronic small vessel ischemic changes. No subdural or epidural hematoma is detected. The mastoid air cells and included paranasal sinuses are normally developed and aerated. No fracture or bone destruction of the cranial vault. There is minimal right frontal extracranial sof t tissue swelling with a small laceration and subcutaneous emphysema in this region. IMPRESSION: Right frontal extracranial soft tissue laceration, minimal right frontal scalp soft tiss ue swelling No skull fracture or acute intracranial finding. No coup or contrecoup intracranial injury is noted Reviewed, dictated and finalized at Location A. Reviewed, dictated and finalized at location A. CE FILLER IMPRESSION: Right frontal extracranial soft tissue laceration, minimal right f rontal scalp soft tissue swelling No skull fracture or acute intracranial finding. No coup or contrecoup intracra nial injury is noted
[2023-05-22 18:01] VITALS: BP 138/67; PULSE 62; RESP 18; TEMP 36.4; O2SAT 98
--- NOTE | 2023-05-22 20:41 | ED.GENADULT ---
HPI - General Adult General Chief complaint: Head Injury Stated complaint: Head Injury, Lacerations Time Seen by Provider: 05/22/23 20:20 History of Present Illness HPI narrative: 72-year-old female presenting to the emergency department for evaluation after having a fall. Patient was walking her dogs when the dog pulled the leash causing her to fall to the ground. Patient does have abrasions to her hand patient did strike her head resulting in a laceration to the right oriental orthodox. Patient denies any loss of consciousness. Patient denies any pain or injury other than the abrasions on her hand and the laceration to her head. Patient denies any neck or back pain patient denies any associated numbness or weakness. Patient is not on any blood thinners. Related Data Home Medications Medication Instructions Recorded Confirmed amlodipine 10 mg tablet 10 mg PO DAILY 03/16/23 03/16/23 cetirizine 10 mg tablet (Zyrtec) 10 mg PO DAILY PRN 03/16/23 03/16/23 Allergies Allergy/AdvReac Type Severity Reaction Status Date / Time No Known Allergies Allergy Verified 03/16/23 09:54 Review of Systems Review of Systems: All systems reviewed & are unremarkable except as noted in HPI and below PMFSH Past Medical History Medical History Chronic neck and back pain (~03/2022) COVID-19 Dyslipidemia Environmental allergies Essential (primary) hypertension GERD without esophagitis Hiatal hernia History of colon polyps Hypothyroidism (acquired) Irritable bowel syndrome with diarrhea Pheochromocytoma Pre-diabetes Right carpal tunnel syndrome RLS (restless legs syndrome) Schatzki's ring Surgical History Surgical History History of suburethral sling procedure (~1994) 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 History of tubal ligation (~1976) Hx of hysterectomy, total (~1994) Family History Family History Other Hypertension Social History Social History Smoking packs per day: 1 Smoking cigarettes per day: 20.0 Years smoked: 50 Smoking pack-years: 50.00 Smoking status: Current every day smoker Tobacco type: cigarettes Second hand tobacco smoke exposure: Yes Alcohol intake: current Alcohol use details: socially-2 glasses of wine/month Substance use: never Substance use type: does not use Lack of Transportation: No Lack of Food: Never True Current Housing: I Have Housing Concerned About Future Housing: No Difficulty Paying Gas/Electric Bills: No Difficulty Paying for Meds: No Currently Unemployed: No Education: High School Diploma/GED Difficulty w/ Childcare or Family Care: No Living arrangements: with family Additional living arrangements comments: Occupation/Education: retired Gender identity (if verbalized by the patient): Female Sexual Orientation (if Verbalized by the Patient): Straight or Heterosexual Spiritual care concerns: No Agree to blood products: Yes Exam Narrative: APPEARANCE: Well appearing, no pain, no distress, well-nourished. HEAD: normocephalic, Laceration to right oriental orthodox. EYES: PERRLA/EOMI, conjunctivae clear. NOSE: Normal no drainage EARS:TMS clear with good light reflex. THROAT: Pharynx clear, no exudate. NECK: Supple. No adenopathy, no masses. RESPIRATORY: Airway patent, respirations nonlabored. Clear to auscultation bilaterally, no rales, rhonchi, wheezing. CARDIOVASCULAR: Regular rate and rhythm without murmurs rubs or gallops. ABDOMINAL: Soft, nontender, nondistended, normal bowel sounds MUSCULOSKELETAL: Moves all extremities. Strength/ROM intact, No edema, No calf tenderness. NEURO: Alert. Cranial nerves II through XII intact. grossly intact SKIN: Warm, dry. Normal Color Course Course Emergency
[2023-05-22] MEDS: LIDOCAINE HCL 1% LOCAL INJ 10 ML VIAL 5 ML INFILTRATE (20:57)
[2023-05-22 21:26] VITALS: BP 128/72; PULSE 75; RESP 17; O2SAT 99
== END 2023-05-22 21:27 | disposition home or self-care (01) ==
PROVIDERS: Emergency Provider Emergency Medicine; PCP Family Medicine
DX: S01.81XA Laceration without foreign body of other part of head, initial encounter (principal); W19.XXXA Unspecified fall, initial encounter; E78.5 Hyperlipidemia, unspecified; E03.9 Hypothyroidism, unspecified; F17.210 Nicotine dependence, cigarettes, uncomplicated
CPT/HCPCS: 12002; 70450; 99284

== ENCOUNTER 2023-09-18 09:30 | Outpatient (CLI) | payer MEDICARE, SELFPAY ==
[2023-09-18 19:27] LABS: Alanine Aminotransferase 16 U/L (6-35); Albumin Level 4.7 g/dL (3.5-5.1); Alkaline Phosphatase 61 U/L (38-126); Anion Gap 5 mmol/L (4-12); Aspartate Amino Transferase 31 U/L (14-36); Bilirubin,Total 0.9 mg/dL (0.2-1.3); Blood Urea Nitrogen 15 mg/dL (7-17); Calcium 10.1 mg/dL (8.4-10.2); Carbon Dioxide 29 mmol/L (22-30); Chloride 106 mmol/L (98-107); Estimated Glomerular Filt Rate > 60; Glucose 110 mg/dL (65-110); Potassium 4.6 mmol/L (3.4-5.0); Sodium 140 mmol/L (137-145)
[2023-09-18 19:41] LABS: Hemoglobin A1C 5.7 % (<5.7)
[2023-09-18 22:12] LABS: Total Triiodothyronine (T3) 1.26 NG/ML (0.97-1.69)
== END 2023-09-18 09:31 | disposition home or self-care (01) ==
LOC: ANHGOSHLAB 09:31
PROVIDERS: PCP Family Medicine; Visit Provider Family Medicine
DX: E11.9 Type 2 diabetes mellitus without complications (principal); I10 Essential (primary) hypertension
CPT/HCPCS: 36415; 80053; 83036; 84439; 84443; 84480

== ENCOUNTER 2023-09-29 11:39 | Outpatient (CLI) | payer MEDICARE, SELFPAY ==
--- NOTE | ~2023-09-29 | CT_ITS ---
Clinical Indication: Nonspecific abnormal finding of lung dennis, lung nodules CT Scan of the Chest with Contrast: Technique: Contiguous sections were acquired throughout the chest after intravenous administration of 75 cc of Omnipaque 350. Dose reduction technique was used on this scan by utilizing automated exposu re control and iterative reconstruction technique. The dose-length product (DLP) was 139.59 mGy-cm. COMPARISON: 06/26/2022 Findings: There is no evidence of any significant mediastinal, hilar or axillary lymphadenopathy. There is no f illing defect in the pulmonary arterial tree to suggest pulmonary embolus. There is no evidence of ao rtic dissection or aneurysm. There is no evidence of pleural or pericardial effusion. Stable 6 mm pleural-based nodule the right lower lobe (axial image 73). Stable additional 5 mm ground glass nodule pleural-based the right lung base (axial image 99). There is mild biapical scarring. Images through the upper abdomen reveal no abnormalities. Impression: Stable subcentimeter pulmonary nodules, most likely benign. Reviewed, dictated and finalized at location . Impression: Stable subcentimeter pulmonary nodules, most likely benign.
[2023-09-29 11:56] LABS: Estimated Glomerular Filt Rate > 60
== END 2023-09-29 11:40 ==
LOC: MICIMG 11:40
PROVIDERS: PCP Family Medicine; Visit Provider Family Medicine
DX: R91.8 Other nonspecific abnormal finding of lung field (principal)
CPT/HCPCS: 71260; Q9967

== ENCOUNTER 2024-02-03 11:27 | Emergency (ER) | payer MEDICARE, SELFPAY ==
--- NOTE | ~2024-02-03 | XR_ITS ---
EXAMINATION: XR ankle LT min 3V, XR foot LT min 3V DATE: 02/03/2024 11:58 INDICATION: Dorsolateral left foot pain and lateral ankle pain and bruising post injury TECHNIQUE: 1. Anteroposterior, mortise, additional oblique and lateral view of the left ankle were obtained. 2. Dorsoplantar, two oblique and lateral views of the left foot were obtained. COMPARISON: None. FINDINGS: Alignment of the left foot and ankle is normal. No acute fractures. There is mild flattening of the h ead of the third metatarsal with linear subarticular sclerosis most likely sequela of chronic osteone crosis (Freiberg's infraction) with differential including old healed fracture. Mild polyarticular os teoarthritis at the left ankle and multiple joints throughout the left foot most prominent at the stepan caneocuboid, first metatarsophalangeal and a few of the central tarsal metatarsal joints. No ankle joselito int effusion. The soft tissues are unremarkable. IMPRESSION: 1. No acute osseous abnormality at the left foot or ankle. 2. 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 3. Mild polyarticular osteoarthritis at the left ankle and throughout the left foot. Reviewed, dictated and finalized at location A. IMPRESSION: 1. No acute osseous abnormality at the left foot or ankle. 2. 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 3. Mild polyarticular osteoarthritis at the left ankle and throughout the left foot.
[2024-02-03 11:35] VITALS: BP 137/77; PULSE 98; RESP 16; TEMP 36.4; O2SAT 100
--- NOTE | 2024-02-03 11:36 | ED.LOWEXIN ---
HPI - Extremity Injury (Lower) General Chief Complaint: Extremity Injury, Lower Stated Complaint: INJURED L ANKLE Time Seen by Provider: 02/03/24 11:32 Source: patient Mode of arrival: ambulatory Limitations: no limitations History of Present Illness HPI Narrative: Sarahi is a 73 year old female patient presenting to the clinic today with c/o left ankle/foot pain x 4 days. She reports she rolled her ankle on Thursday. Is having pain to the lateral ankle, lateral foot, and dorsal foot. Bruising and swelling noted. Related Data Home Medications Medication Instructions Recorded Confirmed cetirizine 10 mg tablet (Zyrtec) 10 mg PO DAILY PRN 03/16/23 09/18/23 Allergies Allergy/AdvReac Type Severity Reaction Status Date / Time No Known Allergies Allergy Verified 02/03/24 11:42 Review of Systems Review of Systems: Pertinent positives per HPI. Patient denies any fever, chills, rash, headache, visual changes, dizziness, cough, runny nose, sore throat, shortness of breath, chest pain, palpitations, nausea, vomiting, diarrhea, constipation, abdominal pain, or any urinary issues. 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 History of tubal ligation (~1976) Hx of hysterectomy, total (~1994) Family History Family History Other Hypertension Social History Social History Smoking packs per day: 0.75 Smoking cigarettes per day: 15.0 Years smoked: 50 Smoking pack-years: 37.50 Smoking status: Current every day smoker Tobacco type: cigarettes Second hand tobacco smoke exposure: Yes Alcohol intake: current Alcohol use details: socially-2 glasses of wine/month Substance use: never Substance use type: does not use Lack of Transportation: No Lack of Food: Never True Current Housing: I Have Housing Concerned About Future Housing: No Difficulty Paying Gas/Electric Bills: No Difficulty Paying for Meds: No Currently Unemployed: No Education: High School Diploma/GED Difficulty w/ Childcare or Family Care: No Living arrangements: with family Additional living arrangements comments: Occupation/Education: retired Gender identity (if verbalized by the patient): Female Sexual Orientation (if Verbalized by the Patient): Straight or Heterosexual Spiritual care concerns: No Agree to blood products: Yes Comments At the time of my signature, I reviewed and agree with the nursing past medical, surgical, social, and family history. There is no relevant family history pertinent to the patient complaint. Exam Narrative: General: Well-developed, well nourished, in no apparent distress Head: Normocephalic, atraumatic. Cardio: Regular rate and rhythm, s1 and s2 normal, no murmur appreciated. Resp: Clear to auscultation bilaterally, no rhonchi, rales, wheezing or rubs. Musculoskeletal: No deformity, bruising and swelling noted to the lateral ankle, dorsal foot, and lateral foot, tenderness to palpation over the lateral ankle, dorsal foot, and lateral foot over the 4th and 5th metatarsals, pain with dorsal flexion and plantar flexion against resistance, grossly normal range of motion, muscle strength strong and equal, peripheral pulse strong, no edema, no
--- NOTE | 2024-02-03 12:25 | PC.NURSE ---
+PMS POST VIC APPLICATION
== END 2024-02-03 12:25 | disposition home or self-care (01) ==
PROVIDERS: Emergency Provider Nurse Practitioner Family; PCP Family Medicine
DX: S93.602A Unspecified sprain of left foot, initial encounter (principal); S93.402A Sprain of unspecified ligament of left ankle, initial encounter; X50.9XXA Other and unspecified overexertion or strenuous movements or postures, initial encounter; E78.5 Hyperlipidemia, unspecified; I10 Essential (primary) hypertension; K21.9 Gastro-esophageal reflux disease without esophagitis; E03.9 Hypothyroidism, unspecified; M88.0 Osteitis deformans of skull; R73.03 Prediabetes; G25.81 Restless legs syndrome; F17.210 Nicotine dependence, cigarettes, uncomplicated; Z86.16 Personal history of COVID-19
CPT/HCPCS: 73610; 73630; 99213; G0463

== ENCOUNTER 2024-03-24 09:23 | Outpatient (CLI) | payer MEDICARE, SELFPAY ==
[2024-03-24 18:48] LABS: Basophils Absolute Auto 0.1 K/mm3 (0.0-0.1); Basophils Percent Auto 0.7 % (0.2-1.2); Eosinophils Absolute Auto 0.3 K/mm3 (0-0.3); Hematocrit 44.8 % (37.0-47.0); Immature Granulocyte Absolute 0.02 K/mm3 (0.00-0.031); Immature Granulocyte Percent A 0.2 % (0-0.5); Lymphocytes Absolute Auto 2.09 K/mm3 (0.9-3.2); Lymphocytes Percent Auto 23.5 % (18.3-44.2); Mean Corpuscular HGB Conc 33.5 g/dl (32-36); Mean Corpuscular Hemoglobin 32.3 pg (26-34); Mean Corpuscular Volume 96.6 fl (80-100); Mean Platelet Volume 11.6 fl (7.4-10.4); Monocytes Absolute Auto 0.7 K/mm3 (0.1-0.6); Neutrophils Absolute Auto 5.8 K/mm3 (1.3-6.7); Neutrophils Percent Auto 64.6 % (45.5-73.1); Platelet Count Result 209 k/mm3 (150-375); Red Blood Count 4.64 M/mm3 (4.2-5.4); Red Cell Distribution Width 15.2 % (11.5-14.5); White Blood Count 8.9 K/mm3 (4.5-10.0)
[2024-03-24 19:36] LABS: Alanine Aminotransferase 15 U/L (6-35); Albumin Level 4.7 g/dL (3.5-5.1); Alkaline Phosphatase 60 U/L (38-126); Anion Gap 7 mmol/L (4-12); Aspartate Amino Transferase 26 U/L (14-36); Bilirubin,Total 0.7 mg/dL (0.2-1.3); Blood Urea Nitrogen 18 mg/dL (7-17); Calcium 10.1 mg/dL (8.4-10.2); Carbon Dioxide 30 mmol/L (22-30); Chloride 102 mmol/L (98-107); Cholesterol 190 mg/dL (0-200); Estimated Glomerular Filt Rate > 60; Glucose 97 mg/dL (65-110); HDL Direct 56 mg/dL; Potassium 4.5 mmol/L (3.4-5.0); Sodium 139 mmol/L (137-145); Triglycerides 109 mg/dL (<150)
[2024-03-24 19:47] LABS: LDL Cholesterol Direct 93 mg/dL
[2024-03-24 19:58] LABS: Vitamin D 25 Hydroxy 47.1 ng/mL
[2024-03-24 21:26] LABS: Hemoglobin A1C 5.9 % (<5.7)
== END 2024-03-24 09:24 | disposition home or self-care (01) ==
LOC: ANHGOSHLAB 09:26
PROVIDERS: PCP Family Medicine; Visit Provider Family Medicine
DX: D35.02 Benign neoplasm of left adrenal gland (principal); R73.03 Prediabetes; E03.9 Hypothyroidism, unspecified; I10 Essential (primary) hypertension; E78.5 Hyperlipidemia, unspecified; E53.8 Deficiency of other specified B group vitamins; E55.9 Vitamin D deficiency, unspecified; Z00.00 Encounter for general adult medical examination without abnormal findings
CPT/HCPCS: 36415; 80053; 80061; 82306; 82607; 83036; 84443; 85025

== ENCOUNTER 2024-09-27 09:49 | Outpatient (CLI) | payer MEDICARE, SELFPAY ==
--- OUTSIDE RECORDS SUMMARY | 2024-09-27 10:59 | XMS_ITS | Clinical Summary ---
Author Organization [facility] Address [address] [place] [address] Phone Care Team Providers Care Cord Maker Name Role Phone EDGARD MARROQUIN, GUILLERMO Parikh Unavailable [phone] Reason for Visit and Chief Complaint DEXASCAN Problems Includes: Problems addressed during this encounter and other active Problems All Visits Onset Date Resolved Date Provider Condition S tatus Chronic Obstructive Pulmonary Disease Mild 04/10/2014 GUILLERMO RENE MD Active Last Documented On 4 1:05PM ; [facility] Diffus Cystic Mastopathy 04/07/2013 GUILLERMO TURNER MD Active Last Documented On 3 2:49PM ; [facility] Plan of Treatment No Plan of Treatment Recorded Assessments Includes: Assessments from this encounter No Assessments Recorded Medical Equipment - Implanted Devices Includes: Current Devices No Medical Equipment Recorded Medications Includes: Medications discussed during this encounter and other current Medications Current Medications (continue as prescribed) Levothyroxine Sodium 137 MCG Oral Capsule 03/01/2019 Provider: Diagnosis: Last Documented On 9 8:40AM By SENDY CALERO ; [facility] Metoprolol Succinate ER 50 M G Oral Tablet Extended Release 24 Hour 03/01/2019 Provider: Diagnosis: Last Documented On 9 8:39AM By SENDY CALERO ; [facility] Pravastatin Sodium 40 MG OR TABS 03/11/2012 Provider : ANA MARÍA CONWAY MD Diagnosis: Last Documented On 03/26/2012 3:01PM By SALIMA SAMANIEGO LPN ; [facility] Benazepril HCl 20 MG OR TABS 01/22/2012 Provider: ANA MARÍA CONWAY MD Diagnosis: Last Documented On 03/26/2012 3:02PM By SALIMA SAMANIEGO LPN ; [facility] Triamterene-HCTZ 37.5-25 MG OR TABS 01/22/2012 Provi william: ANA MARÍA CONWAY MD Diagnosis: Last Documented On 03/26/2012 3:02PM By SALIMA SAMANIEGO LPN ; [facility] amLODIPine Besylate 5 MG OR TABS 01/22/2012 Provider : ANA MARÍA CONWAY MD Diagnosis: Last Documented On 03/26/2012 3:02PM By SALIMA SAMANIEGO LPN ; [facility] Medications Administered Includes: Administered Medications from this encounter No Administered Medications Recorded Results Includes: Results discussed during this encounter No Results Recorded For Specified Dates History of Present Illness Includes: History of Present Illness from this encounter No History of Present Illness Recorded Social History No Social History Recorded - Smoking Status Unknown Medical History Includes: Medical History addressed during this encounter No Medical History Recorded Family History Includes: Family History addressed during this encounter No Family History Recorded Review of Systems Includes: Review of Systems from this encounter No Review of Systems Recorded Mental Status Includes: Mental Status from this encounter No Mental Status Recorded Functional Status Includes: Functional Status from this encounter No Functional Status Recorded Physical Exam Includes: Physical Exam from this encounter No Physical Exam Recorded Allergies Includes: Active Allergies Substance Type Reaction Onset Date Resolved Date Statu s SEASONAL Allergy 04/18/2016 Active Last Documented On 2 10:38AM ; [facility] Encounters Encounter Provider Location Date Check-In Time Check-Out Time Diagnosis DARIAN RENE MD [facility] WEBSITE [employer]IZATION STRATEGIST 03/03/2019 9:00AM 8:55AM Insurance Includes: Active Insurance Policies Plan Name Member ID Group # Subscriber Relationship Effect ven[place] Dates 1 - MEDICARE PART A CLAIMS/NGS [id number] ANDRES A SALMON Self 2 - [employer] [id number] ANDRES Del Castillo SALMON Self Clinical Notes Includes: Clinical Notes from this encounter No Clinical Notes Recorded
--- OUTSIDE RECORDS SUMMARY | 2024-09-27 10:59 | XMS_ITS | Clinical Summary ---
Author Organization [facility] Address [address] [place] [address] Phone Care Team Providers Care Gray Tender Name Role Phone EDGARD MARROQUIN, GUILLERMO Parikh Unavailable [phone] Reason for Visit and Chief Complaint gynecologic annual exam - The Chief Complaint is: WWE; Pt states no c/o Problems Includes: Problems addressed during this encounter and other active Problems All Visits Onset Date Resolved Date Provider Condition S tatus Chronic Obstructive Pulmonary Disease Mild 04/10/2014 GUILLERMO RENE MD Active Last Documented On 4 1:05PM ; [facility] 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 - Last Documented On 03/01/2019 9:14AM ; [facility] Instructions to patient Instructions for patient : B reast Self Exam discussed Last Documented On 9 8:59AM ; [facility] Intervention and counseling on cessation of tobacco use Last Documented On 9 9:02AM ; [facility] Education and Decision Aids were provided during visit for: STD screening offered and de clined Last Documented On 9 8:59AM ; [facility] Bone Mineral Density Screeni ng guidelines reviewed Last Documented On 9 8:59AM ; [facility] Patient Education: Daily stepan cium and vitamin D Last Documented On 9 8:59AM ; [facility] Patient Education: weight be aring exercise Last Documented On 9 8:59AM ; [facility] Colonoscopy screening guidel freddy discussed Last Documented On 9 8:59AM ; [facility] Assessments Includes: Assessments from this encounter Findings - Fibrocystic disease of breast - Last Documented On 03/01/2019 9:14AM ; [facility] - NORMAL FEMALE EXAM - Last Documented On 03/01/2019 9:14AM ; [facility] - Screening Malig. Neoplasm Rectum - Last Documented On 03/01/2019 9:14AM ; [facility] Instructions Includes: Instructions from this encounter Instructions to patient Instructions for patient : B reast Self Exam discussed Last Documented On 9 8:59AM ; [facility] Intervention and counseling on cessation of tobacco use Last Documented On 9 9:02AM ; [facility] Education and Decision Aids were provided during visit for: STD screening offered and de clined Last Documented On 9 8:59AM ; [facility] Bone Mineral Density Screeni ng guidelines reviewed Last Documented On 9 8:59AM ; [facility] Patient Education: Daily stepan cium and vitamin D Last Documented On 9 8:59AM ; [facility] Patient Education: weight be aring exercise Last Documented On 9 8:59AM ; [facility] Colonoscopy screening guidel freddy discussed Last Documented On 9 8:59AM ; [facility] Medical Equipment - Implanted Devices Includes: Current Devices No Medical Equipment Recorded Medications Includes: Medications discussed during this encounter and other current Medications Discontinued / Stopped on this date ANA MARÍA CONWAY MD on 01/22/2012 Toprol XL 50 MG OR TB24 Provider: ARMANDO CONWAY MD Diagnosis: Last Documented On 9 8:37AM By SENDY CALERO ; [facility] Levothyroxine Sodium 112 MCG OR TABS Prov ider: ANA MARÍA CONWAY MD Diagnosis: Last Documented On 9 8:40AM By SENDY CALERO ; [facility] Current Medications (continue as prescribed) Levothyroxine Sodium 137 MCG Oral Capsule 03/01/2019 Provider: Diagnosis: Last Documented On 9 8:40AM By SENDY CALERO ; [facility] Metoprolol Succinate ER 50 M G Oral Tablet Extended Release 24 Hour 03/01/2019 Provider: Diagnosis: Last Documented On 9 8:39AM By SENDY CALERO ; [facility] Pravastatin Sodium 40 MG OR TABS 03/11/2012 Provider : ANA MARÍA CONWAY MD Diagnosis: Last Documented On 03/26/2012 3:01PM By SALIMA SAMANIEGO LPN ; [facility] Benazepril HCl 20 MG OR TABS 01/22/2012 Provider: ANA MARÍA CONWAY MD Diagnosis: Last Documented On 03/26/2012 3:02PM By SALIMA SAMANIEGO LPN ; [facility] Triamterene-HCTZ 37.5-25 MG OR TABS 01/22/2012 Provi william: ANA MARÍA CONWAY MD Diagnosis: Last Documented On 03/26/2012 3:02PM By SALIMA SAMANIEGO LPN ; [facility] amLODIPine Besylate 5 MG OR TABS 01/22/2012 Provider : ANA MARÍA CONWAY MD Diagnosis: Last Documented On 03/26/2012 3:02PM By SALIMA SAMANIEGO LPN ; [facility] Past Medications on file Sulfamethoxazole-TMP DS 800-160 MG Tablet 04/17/2015 - 04/24/2015 Provider: MANNY MCKEON Diagnosis: Carbuncle, unspecified One tablet twice a day take as directed w/food Last Documented On 5 9:42AM By MANNY MCKEON- ; [facility] Spiriva HandiHaler 18 MCG IN CAPS 03/21/2014 - 06/19/2014 Provider: ANA MARÍA CONWAY MD Diagnosis: Last Documented On 04/10/2014 8:28AM By SALIMA SAMANIEGO LPN ; [facility] CeleBREX 200 MG OR CAPS 02/26/2014 - 03/28/2014 Provid er: ANA MARÍA CONWAY MD Diagnosis: Last Documented On 04/10/2014 8:28AM By SALIMA SAMANIEGO LPN ; [facility] Medications Administered Includes: Administered Medications from this encounter No Administered Medications Recorded Vital Signs Includes: Vital Signs from this encounter Vital Name 03/01/2019 08:27A Blood Pressure Sitting (mmHg) 130/70 Height (in) 65.25 Weight (lb) 149 Body Mass Index (kg/m2) 24.6 Body Surface Area (m2) 1.8 Last Documented: On 03/01/2019 8:40AM ; [facility] Results Includes: Results discussed during this encounter No Results Recorded For Specified Dates History of Present Illness Includes: History of Present Illness from this encounter DEANNE SALMON is a 68 year old female. - Allergy list reviewed - Medication list reviewed - Medication reconciliation performed Social History Description Last Updated Tobacco use 03/01/2019 Last Documented On 9 9:14AM ; [facility] Smoking status : Current everyday smoker NTQS 03/01/2019 Last Documented On 9 9:14AM ; [facility] Exercising regularly 03/01/2019 Last Documented On 9 9:14AM ; [facility] Marital history 04/21/2017 Last Documented On 9 8:23AM ; [facility] Personal history retired 12/13 [employer] 04/17/2015 Last Documented On 9 8:23AM ; [facility] Alcohol use occ 04/17/2015 Last Documented On 9 8:23AM ; [facility] Caffeine use DRINKS 2-3 CUPS OF COFFEE EVERY DAY ~DRINKS TEA AND SODA RARELY 04/17/2015 Last Documented On 9 8:23AM ; [facility] Education history 04/17/2015 Last Documented On 9 8:23AM ; [facility] In monogamous relationship 04/17/2015 Last Documented On 9 8:23AM ; [facility] Is a smoker about one to two packs per week now. She has smoked since 18 years old 04/17/2015 Last Documented On 9 8:23AM ; [facility] Not using drugs 04/17/2015 Last Documented On 9 8:23AM ; [facility] Sexually active 04/17/2015 Last Documented On 9 8:23AM ; [facility] Sexually active with 1 partners in the l ast year 04/17/2015 Last Documented On 9 8:23AM ; [facility] Procedures and Surgical History Includes: Procedures from this encounter Procedures Code Diagnosis Performing Provider Service L ocation Service Date intervention and counseling on cessation of tobacco use 4000F Last Documented On 9 9:02AM ; [facility] Clinical summary provided to patient Last Documented On 9 8:59AM ; [facility] vaginal Pap smear 18597 Last Documented On 9 8:59AM ; [facility] FIT Test-Fecal Occult negative 21405 Last Documented On 9 8:59AM ; [facility] Surgical History Last Updated History of total abdominal hysterectomy DUB uterine hypertrophy 04/17/2015 Last Documented On 9 8:23AM ; [facility] Surgical / procedural history 04/17/2015 Last Documented On 9 8:23AM ; [facility] History of tubal ligation 1976 4 Last Documented On 9 8:23AM ; [facility] Bilateral salpingo-oophorectomy 03/14/20 11 Last Documented On 9 8:23AM ; [facility] History of hysterectomy 02/14/19962010 Last Documented On 9 8:23AM ; [facility] Medical History Includes: Medical History addressed during this encounter Description Last Updated History of menopause --- stopped patches in November 2011 10/01/2021 Last Documented On 9 8:23AM ; [facility] Result: normal AMH 10/01/2021 Last Documented On 9 8:23AM ; [facility] Patient recently had a dexa scan 04/25/2014 at [facility] with 0.4, -0.1, and 1.5; 03/01/2019 Last Documented On 9 9:14AM ; [facility] PRIMARY CARE PROVIDER : DR. ANA MARÍA CONWAY Retired, has seen his replacement Dr. House, not sure if going to stay there. omeprazole is from [place] 03/01/2019 Last Documented On 9 9:14AM ; [facility] A colonoscopy was performed 2011 ; with Dr Manfred NARAYAN per pt 03/01/2019 Last Documented On 9 9:14AM ; [facility] Last mammogram date: 04/02/2018 [facility] 06/2018 Last Documented On 9 9:14AM ; [facility] 2 03/01/2019 Last Documented On 9 9:14AM ; [facility] Para 2 03/01/2019 Last Documented On 9 9:14AM ; [facility] Last pap smear date 04/21/2017 9 Last Documented On 9 9:14AM ; [facility] History of complete colonoscopy 03/2014 Last Documented On 9 8:23AM ; [facility] Sexually active 04/10/2014 Last Documented On 9 8:23AM ; [facility] Result: normal AND HPV NEGATIVE 03/26/20 12 Last Documented On 9 8:23AM ; [facility] Vaginal delivery x 2 03/15/2011 Last Documented On 9 8:23AM ; [facility] History of abnormal Pap smear of cervix CRYOSURGERY A LONG TIME AGO 03/15/2011 Last Documented On 9 8:23AM ; [facility] History of cervical dysplasia 03/14/2011 Last Documented On 9 8:23AM ; [facility] History of vaginitis OCCASSIONALLY 03/14 Last Documented On 9 8:23AM ; [facility] LMP: 03/14/1996 03/14/2011 Last Documented On 9 8:23AM ; [facility] Family History Includes: Family History addressed during this encounter Description Last Updated Family history of malignant female breas t neoplasm paternal cousin 10/01/2021 Last Documented On 9 8:23AM ; [facility] Maternal history of diabetes mellitus mo m 04/21/2017 Last Documented On 9 8:23AM ; [facility] Paternal history of diabetes mellitus da d 04/21/2017 Last Documented On 9 8:23AM ; [facility] Paternal history of family history of he art disease Dad 04/21/2017 Last Documented On 9 8:23AM ; [facility] Family history of hypertension PATIENT, mom, dad, brother 04/21/2017 Last Documented On 9 8:23AM ; [facility] Family history of pure hypercholesterole rocky Pt 04/21/2017 Last Documented On 9 8:23AM ; [facility] Maternal history of uterine cancer MOTHE R 04/21/2017 Last Documented On 9 8:23AM ; [facility] Family history of diabetes mellitus FAMI LY HX OF 03/14/2011 Last Documented On 9 8:23AM ; [facility] Heart disease FAMILY HX OF 03/14/2011 Last Documented On 9 8:23AM ; [facility] Review of Systems Includes: Review of Systems from this encounter Gastrointestinal: No nausea, no vomiting, and no hematochezia. Genitourinary: No change in urinary frequency and no feelings of urinary urgency. No urinary loss of control and no incontinence. No dysuria, no stress incontinence, does not feel like bladder is falling out, no vaginal itching or burning, and no vaginal pain during intercourse. No vaginal dryness and no unexplained vaginal bleeding. Musculoskeletal: No arthralgias and no localized joint swelling. Psychological: No anxiety, no depression, and no sleep disturbances. Mental Status Includes: Mental Status from this encounter Description No anxiety Functional Status Includes: Functional Status from this encounter No Functional Status Recorded Physical Exam Includes: Physical Exam from this encounter Allergies Includes: Active Allergies Substance Type Reaction Onset Date Resolved Date Statu s SEASONAL Allergy 04/18/2016 Active Last Documented On 2 10:38AM ; [facility] Encounters Encounter Provider Location Date Check-In Time Check-Out Time Diagnosis ANNUAL SPUD SORTER EXAM GUILLERMO RENE MD [facility] [employer] [facility] 03/01/20 19 8:19AM 9:17AM Breast Fibrocystic Disease,Screeni ng Malig. Neoplasm Rectum,Normal Female Exam Insurance Includes: Active Insurance Policies Plan Name Member ID Group # Subscriber Relationship Effect venice Dates 1 - MEDICARE PART A CLAIMS/NGS [id number] ANDRES SALMON Self 2 - [employer] [id number] ANDRES SALMON Self Clinical Notes Includes: Clinical Notes from this encounter No Clinical Notes Recorded
--- OUTSIDE RECORDS SUMMARY | 2024-09-27 10:59 | XMS_ITS ---
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 GUILLERMO TURNER MD Active Last Documented On 3 2:49PM ; [facility] Plan of Treatment Findings Encounter Date She will let us know if she has other problems in the meantime WELL WOMAN - ESTABLISHED PT with GUILLERMO RENE MD 10/01/2021 Last Documented On 2 11:14AM ; [facility] Ordered follow-up visit 2 ye ars or as needed WELL WOMAN - ESTABLISHED PT with GUILLERMO RENE MD 10/01/2021 Last Documented On 2 11:14AM ; [facility] She will let us know if she has other problems in the meantime 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 Follow up with chiropractic for clavicle ANNUAL COMMERCIAL LITIGATION ASSOCIATE EXAM with GUILLERMO RENE MD 04/21/2017 Last Documented On 7 11:01AM ; [facility] Ordered follow-up visit in 2 years or as needed ANNUAL COMMERCIAL LITIGATION ASSOCIATE EXAM with GUILLERMO RENE MD 04/21/2017 Last Documented On 7 11:01AM ; [facility] She will let us know if she has other problems in the meantime ANNUAL COMMERCIAL LITIGATION ASSOCIATE EXAM with GUILLERMO RENE MD 04/18/2016 Last Documented On 6 1:51PM ; [facility] Ordered follow-up visit 1 ye ar or as needed ANNUAL COMMERCIAL LITIGATION ASSOCIATE EXAM with GUILLERMO RENE MD 04/18/2016 Last Documented On 6 1:51PM ; [facility] Ordered Clinical summary pro vided to patient ANNUAL COMMERCIAL LITIGATION ASSOCIATE EXAM with MANNY MCKEON BC 04/17/2015 Last Documented On 5 9:42AM ; [facility] She will let us know if she has other problems in the meantime ANNUAL COMMERCIAL LITIGATION ASSOCIATE EXAM with GUILLERMO RENE MD 04/10/2014 Last Documented On 4 1:29PM ; [facility] Ordered follow-up visit 1 ye ar or as needed ANNUAL COMMERCIAL LITIGATION ASSOCIATE EXAM with GUILLERMO RENE MD 04/10/2014 Last Documented On 4 1:29PM ; [facility] She will let us know if she has other problems in the mean time 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 with GUILLERMO RENE MD 04/07/2013 Last Documented On 3 3:10PM ; [facility] Ordered follow-up visit 1 ye ar or as needed 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 with GUILLERMO RENE MD 04/07/2013 Last Documented On 3 3:10PM ; [facility] pt to let us know if she has other problems in the meantime ANNUAL COMMERCIAL LITIGATION ASSOCIATE EXAM with GUILLERMO RENE MD 03/26/2012 Last Documented On 2 3:59PM ; [facility] Ordered follow-up visit 1 ye ar or as needed ANNUAL COMMERCIAL LITIGATION ASSOCIATE EXAM with GUILLERMO RENE MD 03/26/2012 Last Documented On 2 3:59PM ; [facility] Ordered follow-up visit 1 ye ar or as needed NEW 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 with GUILLERMO RENE MD 03/14/2011 Last Documented On 1 1:31PM ; [facility] Instructions to patient Instructions for patient : B reast Self Exam discussed Last Documented On 2 10:57AM ; [facility] Intervention and counseling on cessation of tobacco use Last Documented On 2 11:01AM ; [facility] Instructions for patient : B reast Self Exam discussed Last Documented On 9 8:59AM ; [facility] Intervention and counseling on cessation of tobacco use Last Documented On 9 9:02AM ; [facility] Instructions for patient : B reast Self Exam discussed Last Documented On 7 10:46AM ; [facility] Intervention and counseling on cessation of tobacco use Last Documented On 7 10:50AM ; [facility] Instructions for patient : B reast Self Exam discussed Last Documented On 6 1:38PM ; [facility] Instructions for patient : B reast Self Exam discussed and technique reviewed Last Documented On 5 9:15AM ; [facility] Instructed to call if excess venice bleeding or abdominal/pelvic pain Last Documented On 5 9:15AM ; [facility] Recommend diet and exercise at least 30 min three times per week Last Documented On 5 9:15AM ; [facility] Instructions for patient : B reast Self Exam discussed Last Documented On 4 1:17PM ; [facility] Instructions for patient : B reast Self Exam discussed Last Documented On 3 2:12PM ; [facility] Instructions for patient : B reast Self Exam discussed Last Documented On 2 3:44PM ; [facility] Instructions for patient : B reast Self Exam discussed Last Documented On 1 1:13PM ; [facility] Education and Decision Aids were provided during visit for: STD screening offered and de clined Last Documented On 2 10:57AM ; [facility] Bone Mineral Density Screeni ng guidelines reviewed Last Documented On 2 10:57AM ; [facility] Patient Education: Daily stepan cium and vitamin D Last Documented On 2 10:57AM ; [facility] Patient Education: weight be aring exercise Last Documented On 2 10:57AM ; [facility] Colonoscopy screening guidel freddy discussed Last Documented On 2 10:57AM ; [facility] STD screening offered and de clined Last Documented On 9 8:59AM ; [facility] Bone Mineral Density Screeni ng guidelines reviewed Last Documented On 9 8:59AM ; [facility] Patient Education: Daily stepan cium and vitamin D Last Documented On 9 8:59AM ; [facility] Patient Education: weight be aring exercise Last Documented On 9 8:59AM ; [facility] Colonoscopy screening guidel freddy discussed Last Documented On 9 8:59AM ; [facility] STD screening offered and de clined Last Documented On 7 10:46AM ; [facility] Bone Mineral Density Screeni ng guidelines reviewed Last Documented On 7 10:46AM ; [facility] Patient Education: Daily stepan cium and vitamin D Last Documented On 7 10:46AM ; [facility] Patient Education: weight be aring exercise Last Documented On 7 10:46AM ; [facility] Colonoscopy screening guidel freddy discussed Last Documented On 7 10:46AM ; [facility] STD screening offered and de clined Last Documented On 6 1:38PM ; [facility] Bone Mineral Density Screeni ng guidelines reviewed we will wait another year or two Last Documented On 6 1:43PM ; [facility] Patient Education: Daily stepan cium and vitamin D Last Documented On 6 1:38PM ; [facility] Patient Education: weight be aring exercise Last Documented On 6 1:38PM ; [facility] Colonoscopy screening guidel freddy discussed Last Documented On 6 1:38PM ; [facility] Discussed smoking and drug u se Last Documented On 5 9:15AM ; [facility] Patient counseling :skin car e no scented soaps, loose fitting clothing Last Documented On 5 9:37AM ; [facility] Patient Education: Daily stepan cium and vitamin D Last Documented On 5 9:15AM ; [facility] STD screening offered and de clined Last Documented On 4 1:17PM ; [facility] Bone Mineral Density Screeni ng guidelines reviewed Last Documented On 4 1:17PM ; [facility] Patient Education: Daily stepan cium and vitamin D Last Documented On 4 1:17PM ; [facility] Patient Education: weight be aring exercise Last Documented On 4 1:17PM ; [facility] Colonoscopy screening guidel freddy discussed Last Documented On 4 1:17PM ; [facility] STD screening offered and de clined Last Documented On 3 2:12PM ; [facility] Bone Mineral Density Screeni ng guidelines reviewed Last Documented On 3 2:12PM ; [facility] Patient Education: Daily stepan cium and vitamin D Last Documented On 3 2:12PM ; [facility] Patient Education: weight be aring exercise Last Documented On 3 2:12PM ; [facility] Colonoscopy screening guidel freddy discussed Last Documented On 3 2:12PM ; [facility] Bone Mineral Density Screeni ng guidelines reviewed Last Documented On 2 3:44PM ; [facility] Patient Education: Daily stepan cium and vitamin D Last Documented On 2 3:44PM ; [facility] Patient Education: weight be aring exercise Last Documented On 2 3:44PM ; [facility] Colonoscopy screening guidel freddy discussed Last Documented On 2 3:44PM ; [facility] Bone Mineral Density Screeni ng guidelines reviewed and patient wants to wait for next year as her results were good Last Documented On 1 1:27PM ; [facility] Patient Education: Daily stepan cium and vitamin D Last Documented On 1 1:13PM ; [facility] Patient Education: weight be aring exercise Last Documented On 1 1:13PM ; [facility] Assessments Includes: Assessments for all patient encounters Findings Encounter Date Fibrocystic disease of breast WELL WOMAN - ESTABLISHED PT with GUILLERMO RENE MD 10/01/2021 Last Documented On 2 11:14AM ; [facility] NORMAL FEMALE EXAM WELL WOMAN - ESTABLISHED PT w ith GUILLERMO RENE MD 10/01/2021 Last Documented On 2 11:14AM ; [facility] Screening Malig. Neoplasm Rectum WELL WO MAN - ESTABLISHED PT with GUILLERMO RENE MD 10/01/2021 Last Documented On 2 11:14AM ; [facility] Fibrocystic disease of breast ANNUAL COMMERCIAL LITIGATION ASSOCIATE EXAM wi th GUILLERMO RENE MD 03/01/2019 Last Documented On 9 9:14AM ; [facility] NORMAL FEMALE EXAM ANNUAL COMMERCIAL LITIGATION ASSOCIATE EXAM with GUILLERMO BAUMAN MD 03/01/2019 Last Documented On 9 9:14AM ; [facility] Screening Malig. Neoplasm Rectum ANNUAL COMMERCIAL LITIGATION ASSOCIATE EXAM with GUILLERMO RENE MD 03/01/2019 Last Documented On 9 9:14AM ; [facility] Fibrocystic disease of breast ANNUAL COMMERCIAL LITIGATION ASSOCIATE EXAM wi th GUILLERMO RENE MD 04/21/2017 Last Documented On 7 11:01AM ; [facility] NORMAL FEMALE EXAM ANNUAL COMMERCIAL LITIGATION ASSOCIATE EXAM with GUILLERMO BAUMAN MD 04/21/2017 Last Documented On 7 11:01AM ; [facility] Screening Malig. Neoplasm Rectum ANNUAL COMMERCIAL LITIGATION ASSOCIATE EXAM with GUILLERMO RENE MD 04/21/2017 Last Documented On 7 11:01AM ; [facility] Fibrocystic disease of breast ANNUAL COMMERCIAL LITIGATION ASSOCIATE EXAM wi th GUILLERMO RENE MD 04/18/2016 Last Documented On 6 1:51PM ; [facility] NORMAL FEMALE EXAM ANNUAL COMMERCIAL LITIGATION ASSOCIATE EXAM with GUILLERMO BAUMAN MD 04/18/2016 Last Documented On 6 1:51PM ; [facility] Screening Malig. Neoplasm Rectum ANNUAL COMMERCIAL LITIGATION ASSOCIATE EXAM with GUILLERMO RENE MD 04/18/2016 Last Documented On 6 1:51PM ; [facility] Carbuncle ANNUAL COMMERCIAL LITIGATION ASSOCIATE EXAM with MANNY HARPER RN [facility] 04/17/2015 Last Documented On 5 9:42AM ; [facility] NORMAL FEMALE EXAM ANNUAL COMMERCIAL LITIGATION ASSOCIATE EXAM with MANYN MCBRIDE RN [facility] 04/17/2015 Last Documented On 5 9:42AM ; [facility] Breast fibrocystic disease ANNUAL COMMERCIAL LITIGATION ASSOCIATE EXAM with GUILLERMO RENE MD 04/10/2014 Last Documented On 4 1:29PM ; [facility] NORMAL FEMALE EXAM ANNUAL COMMERCIAL LITIGATION ASSOCIATE EXAM with GUILLERMO BAUMAN MD 04/10/2014 Last Documented On 4 1:29PM ; [facility] Screening Malig. Neoplasm Rectum ANNUAL COMMERCIAL LITIGATION ASSOCIATE EXAM with GUILLERMO RENE MD 04/10/2014 Last Documented On 4 1:29PM ; [facility] Breast fibrocystic disease 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 with GUILLERMO RENO MD 04/07/2013 Last Documented On 3 3:10PM ; [facility] NORMAL FEMALE EXAM 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 with GUILLERMO RENE MD 04/07/2013 Last Documented On 3 3:10PM ; [facility] Screening Malig. Neoplasm Rectum 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 with Leroy RENE MD 04/07/2013 Last Documented On 3 3:10PM ; [facility] Breast fibrocystic disease ANNUAL COMMERCIAL LITIGATION ASSOCIATE EXAM with GUILLERMO RENE MD 03/26/2012 Last Documented On 2 3:59PM ; [facility] NORMAL FEMALE EXAM ANNUAL COMMERCIAL LITIGATION ASSOCIATE EXAM with GUILLERMO BAUMAN MD 03/26/2012 Last Documented On 2 3:59PM ; [facility] Screening Malig. 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 Neoplasm Rectum NEW 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 wi th GUILLERMO RENE MD 03/14/2011 Last Documented On 1 1:31PM ; [facility] Instructions Includes: Instructions for all patient encounters Instructions to patient Instructions for patient : B reast Self Exam discussed Last Documented On 2 10:57AM ; [facility] Intervention and counseling on cessation of tobacco use Last Documented On 2 11:01AM ; [facility] Instructions for patient : B reast Self Exam discussed Last Documented On 9 8:59AM ; [facility] Intervention and counseling on cessation of tobacco use Last Documented On 9 9:02AM ; [facility] Instructions for patient : B reast Self Exam discussed Last Documented On 7 10:46AM ; [facility] Intervention and counseling on cessation of tobacco use Last Documented On 7 10:50AM ; [facility] Instructions for patient : B reast Self Exam discussed Last Documented On 6 1:38PM ; [facility] Instructions for patient : B reast Self Exam discussed and technique reviewed Last Documented On 5 9:15AM ; [facility] Instructed to call if excess venice bleeding or abdominal/pelvic pain Last Documented On 5 9:15AM ; [facility] Recommend diet and exercise at least 30 min three times per week Last Documented On 5 9:15AM ; [facility] Instructions for patient : B reast Self Exam discussed Last Documented On 4 1:17PM ; [facility] Instructions for patient : B reast Self Exam discussed Last Documented On 3 2:12PM ; [facility] Instructions for patient : B reast Self Exam discussed Last Documented On 2 3:44PM ; [facility] Instructions for patient : B reast Self Exam discussed Last Documented On 1 1:13PM ; [facility] Education and Decision Aids were provided during visit for: STD screening offered and de clined Last Documented On 2 10:57AM ; [facility] Bone Mineral Density Screeni ng guidelines reviewed Last Documented On 2 10:57AM ; [facility] Patient Education: Daily stepan cium and vitamin D Last Documented On 2 10:57AM ; [facility] Patient Education: weight be aring exercise Last Documented On 2 10:57AM ; [facility] Colonoscopy screening guidel freddy discussed Last Documented On 2 10:57AM ; [facility] STD screening offered and de clined Last Documented On 9 8:59AM ; [facility] Bone Mineral Density Screeni ng guidelines reviewed Last Documented On 9 8:59AM ; [facility] Patient Education: Daily stepan cium and vitamin D Last Documented On 9 8:59AM ; [facility] Patient Education: weight be aring exercise Last Documented On 9 8:59AM ; [facility] Colonoscopy screening guidel freddy discussed Last Documented On 9 8:59AM ; [facility] STD screening offered and de clined Last Documented On 7 10:46AM ; [facility] Bone Mineral Density Screeni ng guidelines reviewed Last Documented On 7 10:46AM ; [facility] Patient Education: Daily stepan cium and vitamin D Last Documented On 7 10:46AM ; [facility] Patient Education: weight be aring exercise Last Documented On 7 10:46AM ; [facility] Colonoscopy screening guidel freddy discussed Last Documented On 7 10:46AM ; [facility] STD screening offered and de clined Last Documented On 6 1:38PM ; [facility] Bone Mineral Density Screeni ng guidelines reviewed we will wait another year or two Last Documented On 6 1:43PM ; [facility] Patient Education: Daily stepan cium and vitamin D Last Documented On 6 1:38PM ; [facility] Patient Education: weight be aring exercise Last Documented On 6 1:38PM ; [facility] Colonoscopy screening guidel freddy discussed Last Documented On 6 1:38PM ; [facility] Discussed smoking and drug u se Last Documented On 5 9:15AM ; [facility] Patient counseling :skin car e no scented soaps, loose fitting clothing Last Documented On 5 9:37AM ; [facility] Patient Education: Daily stepan cium and vitamin D Last Documented On 5 9:15AM ; [facility] STD screening offered and de clined Last Documented On 4 1:17PM ; [facility] Bone Mineral Density Screeni ng guidelines reviewed Last Documented On 4 1:17PM ; [facility] Patient Education: Daily stepan cium and vitamin D Last Documented On 4 1:17PM ; [facility] Patient Education: weight be aring exercise Last Documented On 4 1:17PM ; [facility] Colonoscopy screening guidel freddy discussed Last Documented On 4 1:17PM ; [facility] STD screening offered and de clined Last Documented On 3 2:12PM ; [facility] Bone Mineral Density Screeni ng guidelines reviewed Last Documented On 3 2:12PM ; [facility] Patient Education: Daily stepan cium and vitamin D Last Documented On 3 2:12PM ; [facility] Patient Education: weight be aring exercise Last Documented On 3 2:12PM ; [facility] Colonoscopy screening guidel freddy discussed Last Documented On 3 2:12PM ; [facility] Bone Mineral Density Screeni ng guidelines reviewed Last Documented On 2 3:44PM ; [facility] Patient Education: Daily stepan cium and vitamin D Last Documented On 2 3:44PM ; [facility] Patient Education: weight be aring exercise Last Documented On 2 3:44PM ; [facility] Colonoscopy screening guidel freddy discussed Last Documented On 2 3:44PM ; [facility] Bone Mineral Density Screeni ng guidelines reviewed and patient wants to wait for next year as her results were good Last Documented On 1 1:27PM ; [facility] Patient Education: Daily stepan cium and vitamin D Last Documented On 1 1:13PM ; [facility] Patient Education: weight be aring exercise Last Documented On 1 1:13PM ; [facility] Medical Equipment - Implanted Devices Includes: Current and historical Devices No Medical Equipment Recorded Medications Includes: Current and historical Medications Current Medications (continue as prescribed) Levothyroxine Sodium 137 MCG Oral Capsule 03/01/2019 Provider: Diagnosis: Last Documented On 9 8:40AM By SENDY CALERO ; [facility] Metoprolol Succinate ER 50 M G Oral Tablet Extended Release 24 Hour 03/01/2019 Provider: Diagnosis: Last Documented On 9 8:39AM By SENDY CALERO ; [facility] Pravastatin Sodium 40 MG OR TABS 03/11/2012 Provider : ANA MARÍA CONWAY MD Diagnosis: Last Documented On 03/26/2012 3:01PM By SALIMA SAMANIEGO LPN ; [facility] Benazepril HCl 20 MG OR TABS 01/22/2012 Provider: ANA MARÍA CONWAY MD Diagnosis: Last Documented On 03/26/2012 3:02PM By SALIMA SAMANIEGO LPN ; [facility] Triamterene-HCTZ 37.5-25 MG OR TABS 01/22/2012 Provi william: ANA MARÍA CONWAY MD Diagnosis: Last Documented On 03/26/2012 3:02PM By SALIMA SAMANIEGO LPN ; [facility] amLODIPine Besylate 5 MG OR TABS 01/22/2012 Provider : ANA MARÍA CONWAY MD Diagnosis: Last Documented On 03/26/2012 3:02PM By SALIMA SAMANIEGO LPN ; [facility] [facility] Past Medications on file Omeprazole 20 MG Oral Tablet Delayed Release 9 - 10/01/2021 Provider: Diagnosis: Last Documented On 10:38AM By Catalino CALERO ; [facility] Sulfamethoxazole-TMP DS 800-160 MG Tablet 04/17/2015 - 04/24/2015 Provider: MANNY MCBRIDE RN DEBORA Diagnosis: Carbuncle, unspecified One tablet twice a day take as directed w/food Last Documented On 5 9:42AM By MANNY MCBRIDE DEBORA- ; [facility] Spiriva HandiHaler 18 MCG IN CAPS 03/21/2014 - 06/19/2014 Provider: ANA MARÍA CONWAY MD Diagnosis: Last Documented On 04/10/2014 8:28AM By SALIMA SAMANIEGO LPN ; [facility] CeleBREX 200 MG OR CAPS 02/26/2014 - 03/28/2014 Provid er: ANA MARÍA CONWAY MD Diagnosis: Last Documented On 04/10/2014 8:28AM By SALIMA SAMANIEGO LPN ; [facility] Carbidopa-Levodopa ER 50-200 MG OR TBCR 03/11/2012 - 10/01/2021 Provider: ANA MARÍA CONWAY MD Diagnosis: Last Documented On 2 10:38AM By Catalino CALERO ; [facility] Toprol XL 50 MG OR TB24 01/22/2012 - 03/01/2019 Provid er: ANA MARÍA CONWAY MD Diagnosis: Last Documented On 9 8:37AM By SENDY CALERO ; [facility] Levothyroxine Sodium 112 MCG OR TABS 01/22/2012 - 03/01/2019 Provider: ANA MARÍA CONWAY MD Diagnosis: Last Documented On 9 8:40AM By SENDY CALERO ; [facility] EQ Omeprazole 20 MG OR TBEC 01/22/2012 - 04/17/2015 Pr ovider: ANA MARÍA CONWAY MD Diagnosis: Last Documented On 04/17/2015 9:05AM By CASA BELL MA ; [facility] predniSONE 20 MG OR TABS 01/19/2012 - 04/07/2013 Provi william: ANA MARÍA CONWAY MD Diagnosis: Last Documented On 04/07/2013 1:52PM By TANIA HSIEH ; [facility] Vivelle-Dot 0.0375 MG/24HR TD PTTW 03/14/2011 - 03/26/2012 Provider: GUILLERMO RENE MD Diagnosis: Sympt [place] Sig: Apply 2 x per week Last Documented On 03/26/2012 3:22PM By SALIMA SAMANIEGO LPN ; [facility] Vivelle-Dot 0.0375 MG/24HR TD PTTW 03/14/2011 - 03/26/2012 Provider: GUILLERMO RENE MD Diagnosis: Sympt Fem [place] Sig: Apply 2 x per week Last Documented On 03/26/2012 3:23PM By SALIMA SAMANIEGO LPN ; [facility] Medications Administered Includes: Administered Medications in patient's chart No Administered Medications Recorded Results Includes: Results from 09/28/2023 through 09/27/2024 No Results Recorded For Specified Dates History of Present Illness History of Present Illness not supported for this document type No History of Present Illness Recorded Social History Description Last Updated Current smoker 10/01/2021 Last Documented On 2 11:14AM ; [facility] Tobacco use 03/01/2019 Last Documented On 9 9:14AM ; [facility] Smoking status : Current everyday smoker NTQS 03/01/2019 Last Documented On 9 9:14AM ; [facility] Exercising regularly 03/01/2019 Last Documented On 9 9:14AM ; [facility] Marital history 04/21/2017 Last Documented On 7 11:01AM ; [facility] 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 04/17/2015 Last Documented On 5 9:42AM ; [facility] Alcohol use occ 04/17/2015 Last Documented On 5 9:42AM ; [facility] Caffeine use DRINKS 2-3 CUPS OF COFFEE EVERY DAY ~DRINKS TEA AND SODA RARELY 04/17/2015 Last Documented On 5 9:42AM ; [facility] Cigarette smoking 04/17/2015 Last Documented On 5 9:42AM ; [facility] Education history 04/17/2015 Last Documented On 5 9:42AM ; [facility] In monogamous relationship 04/17/2015 Last Documented On 5 9:42AM ; [facility] Is a smoker about one to two packs per week now. She has smoked since 18 years old 04/17/2015 Last Documented On 5 9:42AM ; [facility] Not using drugs 04/17/2015 Last Documented On 5 9:42AM ; [facility] Sexually active 04/17/2015 Last Documented On 5 9:42AM ; [facility] Sexually active with 1 partners in the l ast year 04/17/2015 Last Documented On 5 9:42AM ; [facility] Cigarette smokin.5 pack-years histor y 04/17/2015 Last Documented On 5 9:42AM ; [facility] Procedures and Surgical History Surgical History Last Updated History of total abdominal hysterectomy DUB uterine hypertrophy 04/17/2015 Last Documented On 5 9:42AM ; [facility] Surgical / procedural history 04/17/2015 Last Documented On 5 9:42AM ; [facility] History of tubal ligation 1976 4 Last Documented On 4 1:29PM ; [facility] Bilateral salpingo-oophorectomy 03/14/20 11 Last Documented On 1 1:31PM ; [facility] No history of Loop electrode excision of cervix (LEEP) 03/14/2011 Last Documented On 1 1:31PM ; [facility] History of hysterectomy 02/14/19962010 Last Documented On 1 1:31PM ; [facility] Medical History Includes: Medical History in patient's chart Description Last Updated Primary Care Provider: Dr. House 10/01 Last Documented On 2 11:14AM ; [facility] History of menopause --- sto pped patches in November 2011 ~Pre-Diabetic as of March 2021 10/01/2021 Last Documented On 2 11:14AM ; [facility] Result: normal 10/01/2021 Last Documented On 2 11:14AM ; [facility] Patient recently had a dexa scan 03/03/19 10/01/2021 Last Documented On 2 11:14AM ; [facility] Last mammogram date: 06/26/2021 [facility] 10/01 Last Documented On 2 11:14AM ; [facility] A colonoscopy was performed 2011 ; with Dr Manfred NARAYAN per pt 03/01/2019 Last Documented On 9 9:14AM ; [facility] 2 03/01/2019 Last Documented On 9 9:14AM ; [facility] Para 2 03/01/2019 Last Documented On 9 9:14AM ; [facility] Last pap smear date 04/21/2017 9 Last Documented On 9 9:14AM ; [facility] History of complete colonoscopy 03/2014 Last Documented On 4 1:29PM ; [facility] Sexually active 04/10/2014 Last Documented On 4 1:29PM ; [facility] History of a DEXA of the lateral lumbar spine was performed 04/07/2012 04/10/2014 Last Documented On 4 1:29PM ; [facility] History of a screening mammogram was per formed 03/28/2014 04/10/2014 Last Documented On 4 1:29PM ; [facility] History of Pap smear done 04/08/201303/2014 Last Documented On 4 1:29PM ; [facility] Not using contraception 03/26/2012 Last Documented On 2 3:59PM ; [facility] Result: normal AND HPV NEGATIVE 03/26/20 12 Last Documented On 2 3:59PM ; [facility] Vaginal delivery x 2 03/15/2011 Last Documented On 1 1:31PM ; [facility] No history of depression 03/15/2011 Last Documented On 1 1:31PM ; [facility] No history of postmenopausal osteoporosi s 03/15/2011 Last Documented On 1 1:31PM ; [facility] Last Documented On 1 1:31PM ; [facility] History of abnormal Pap smear of cervix CRYOSURGERY A LONG TIME AGO 03/15/2011 Last Documented On 1 1:31PM ; [facility] History of cervical dysplasia 03/14/2011 Last Documented On 1 1:31PM ; [facility] History of vaginitis OCCASSIONALLY 03/14 Last Documented On 1 1:31PM ; [facility] No history of urinary tract infection Last Documented On 1 1:31PM ; [facility] LMP: 03/14/1996 03/14/2011 Last Documented On 1 1:31PM ; [facility] Family History Includes: Family History in patient's chart Description Last Updated Family history of malignant female breast neoplasm paternal cousin late 60's 10/01/2021 Last Documented On 2 11:14AM ; [facility] Maternal history of diabetes mellitus mo m 04/21/2017 Last Documented On 7 11:01AM ; [facility] Paternal history of diabetes mellitus da d 04/21/2017 Last Documented On 7 11:01AM ; [facility] Paternal history of family history of he art disease Dad 04/21/2017 Last Documented On 7 11:01AM ; [facility] Family history of hypertension PATIENT, mom, dad, brother 04/21/2017 Last Documented On 7 11:01AM ; [facility] Family history of pure hypercholesterole rocky Pt 04/21/2017 Last Documented On 7 11:01AM ; [facility] Maternal history of uterine cancer MOTHE R 04/21/2017 Last Documented On 7 11:01AM ; [facility] Diabetes mellitus 04/17/2015 Last Documented On 5 9:42AM ; [facility] Family history of uterine cancer MOTHER 03/14/2011 Last Documented On 1 1:31PM ; [facility] No family history of malignant neoplasm of the large intestine 03/14/2011 Last Documented On 1 1:31PM ; [facility] No family history of malignant neoplasm of the ovary 03/14/2011 Last Documented On 1 1:31PM ; [facility] Family history of diabetes mellitus FAMI LY HX OF 03/14/2011 Last Documented On 1 1:31PM ; [facility] Heart disease FAMILY HX OF 03/14/2011 Last Documented On 1 1:31PM ; [facility] Review of Systems Review of Systems not supported for this document type No Review of Systems Recorded Mental Status No Mental Status Recorded Functional Status No Functional Status Recorded Physical Exam Physical Exam not supported for this document type No Physical Exam Recorded Allergies Includes: Active, inactive, and resolved Allergies Substance Type Reaction Onset Date Resolved Date Statu s SEASONAL Allergy 04/18/2016 Active Last Documented On 2 10:38AM ; [facility] Insurance Includes: Active Insurance Policies Plan Name Member ID Group # Subscriber Relationship Effect venice Dates 1 - MEDICARE PART A CLAIMS/NGS [id number] ANDRES Pozo 2 - [employer] [id number] ANDRES Pozo Clinical Notes Includes: Signed Clinical Notes starting from 06/20/2022 No Clinical Notes Recorded
--- OUTSIDE RECORDS SUMMARY | 2024-09-27 11:00 | XMS_ITS ---
Care Plan - [facility] Created on: September 27, 2024 ANDRES SALMON : 1950 Sex: Female Author Organization [facility] Address [address] [place] [address] Phone Care Team Providers Care Live In Companion Name Role Phone EDGARD MARROQUIN, GUILLERMO C Unavailable [phone]
--- OUTSIDE RECORDS SUMMARY | 2024-09-27 11:00 | XMS_ITS | Referral Summary ---
Author Organization [facility] Address [address] [place] [address] Care Team Providers Care Ultrasound Technologist Sonographer Name Role Phone Bridget House MD Primary Care Provider Allergies No known active allergies Medications amLODIPine (NORVASC) 5 mg tablet Take 1 tablet (5 mg total) by mouth nightly Active benazepriL (LOTENSIN) 20 mg tablet Take 1 tablet (20 mg total) by mouth nightly Active metoprolol XL (TOPROL-XL) 50 mg extended release tablet Take 1 tablet (50 mg total) by mouth nightly Active levothyroxine (SYNTHROID) 112 mcg tablet Take 1 tablet (112 mcg total) by mouth rodbuster before breakfast Active pravastatin (PRAVACHOL) 20 mg tablet Take 3 tablets (60 mg total) by mouth daily Active multivitamin capsule Take 1 capsule by mouth daily Active calcium carbonate-vitam in D3 1,250 mg (500 mg elemental)-125 unit per tablet Take 1 tablet by mouth daily Active Bacillus coagulans (PROBIOTIC, B. COAGULANS, ORAL) Take 1 capsule by mouth daily Active calcium-magnesi um-zinc 333-133-8.3 mg tablet Take 1 tablet by mouth daily Active ascorbic acid (vitamin C) 1,000 mg tablet Take 1 tablet (1,000 mg total) by mouth daily Active alpha lipoic acid 300 mg capsule Take 1 capsule (300 mg total) by mouth daily Active doxazosin (CARDURA) 4 mg tablet Take 1 tablet (4 mg total) by mouth nightly 30 tablet 1 3 Active doxazosin (CARDURA) 4 mg tablet Take 1 tablet (4 mg total) by mouth daily 30 tablet 11 3 Active Active Problems Problem Noted Date Diagnosed Date Pheochromocytoma, left 02/06/2023 Hypothyroid 01/20/2023 Hyperlipidemia 01/20/2023 Pheochromocytoma of left adrenal gland 3 Gastroesophageal reflux disease 09/21/2019 Irritable bowel syndrome with diarrhea 0 Social History Tobacco Use Types Packs/Day Years Used Date Smoking Tobacco: Every Day Cigarettes Tobacco Cessation:Ready to Q uit: Not Asked; Counseling Given: Not Answered AUDIT-C Answer Date Recorded Q1: How often do you have a drink containing alc ohol? Monthly or less 01/16/2023 Q2: How many drinks containi ng alcohol do you have on a typical day when you are drinking? 1 or 2 01/16/2023 Q3: How often do you have si x or more drinks on one occasion? Never 01/16/2023 Personal Safety Answer Date Recorded Have you ever been in or are you currently in a harmful physical or emotional relationship or is someone making you feel afraid or unsafe? Denies 02/06/2023 Comments No Sex and Gender Information Value Date Recorded Sex Assigned at Not on file Legal Sex Female 1:42 AM [employer]SEM[employer] Gender Identity Female 02/20/2023 10:57 AM CDT Sexual Orientation Straight 02/20/2023 10 :57 AM CDT Last Filed Vital Signs Vital Sign Reading Time Taken Comments Blood Pressure 126/67 02/08/2023 12:55 PM CDT Pulse 76 02/08/2023 12:55 PM CDT Temperature 36.4 C (97.6 F) 02/08/2023 12:55 PM CDT Respiratory Rate 16 02/08/2023 12:55 PM CDT Oxygen Saturation 96% 02/08/2023 12:55 PM CDT Inhaled Oxygen Concentration - - Weight 58.2 kg (128 lb 4.9 oz) 02/06/2023 6:38 A M CDT Height 165.1 cm (5' 5 ) 02/06/2023 6:38 AM CDT Body Mass Index 21.35 02/06/2023 6:38 AM CDT Plan of Treatment Not on file Procedures Procedure Name Priority Date/Time Associated Diagnosis Comments SCREENING MAMMOGRAM BILATERAL W TIMMY Schedule Routine, Read Routine (OP Routine) 08/21/2023 1:23 PM CDT Screening mammogram, encounter for from Last 3 Months or Most Recently Relevant to Health Maintenance Results * Screening Mammogram Bilateral W Timmy (08/21/2023 1:23 PM CDT) Anatomical Region Laterality Modality Breast Bilateral Mammography 08/21/2023 1:30 PM CDT Impressions 08/21/2023 1:30 PM CDT There is no mammographic evidence of malignancy. A 1 year screening mammogram is recommended. BI-RADS: 1 - Negative. The patient has been or will be contacted. The patient will be entered into a reminder system with a target due date of 1 year for her next mammogram. Electronically signed by: Denis Michelle 08/21/2023 1:30 PM CDT EXAMINATION: SCREENING MAMMOGRAM BILATERAL W TIMMY ORDERING HEALTHCARE PROVIDER: SELF SCREENING MAMMOGRAM HISTORY: Routine screening mammography. COMPARISON: 08/19/2022, 07/25/2022, 06/26/2021, 06/06/2020, 04/07/2019 TECHNIQUE: CC and MLO views of the bilateral breasts were obtained with digital technique using breast tomosynthesis with C view. Computer aided detection was utilized. FINDINGS: DENSITY: There are scattered fibroglandular elements in the bilateral breasts. BREASTS: There are benign bilateral microcalcifications. There are no suspicious masses, suspicious calcifications, or other suspicious findings in either breast. There has been no suspicious interval change. us Self Screening Mammogram IMG MAMMO PROCEDURES Fi nal Result from Last 3 Months or Most Recently Relevant to Health Maintenance Insurance MEDICARE [employer] SENIOR SUPPLEMENT [employer]ARE [employer] Advance Directives For more information, please contact: [phone] * Full Code (Latest Code Status on File) Date Activated Date Inactivated Comments 02/06/2023 3:41 PM 02/08/2023 6:08 PM Care Teams Ultrasound Technologist Sonographer Relationship Specialty Start Date End Date Bridget House MD PCP - General 04/01/17
--- OUTSIDE RECORDS SUMMARY | 2024-09-27 11:00 | XMS_ITS | Clinical Summary ---
Author Organization [facility] Address [address] [place] [address] Care Team Providers Care Gas Plant Dispatcher Name Role Phone Bridget House MD Primary [...] 1 tablet (112 mcg total) by mouth machine tool technician instructor before breakfast Active pravastatin (PRAVACHOL) 20 mg [...] 09/21/2019 Irritable bowel syndrome with diarrhea 0 Surgical History Surgery Date Site/Laterality Comments HYSTERECTOMY BSO OOPHORECTOMY TUBAL LIGATION BLADDER SUSPENSION Medical History Medical History Date Comments Smoking Family History Medical History Relation Name Comments Breast cancer Maternal cousin Thyroid cancer Sister Ovarian cancer Neg Hx Relation Name Status Comments Maternal cousin Paternal cousin Sister Social History Tobacco Use Types Packs/Day Years [...] on file Legal Sex Female 1:42 AM [employer] Gender Identity Female 02/20/2023 10:57 AM CDT Sexual Orientation Straight 02/20/2023 10 :57 AM CDT Obstetrics History Para Term AB IAB SAB Ectopic Multiple Livin g Live Births 4 4 4 Date Outcome GA Total Labor Labor/2nd/3rd Weight Sex Type Anes PTL Thais A1 A5 Name Clin Term Term Term Term Last Filed Vital Signs Vital Sign Reading [...] 02/06/2023 6:38 AM CDT Plan of Treatment Health Maintenance Due Date Last Done Comments Colon Cancer Screening-Colonoscopy 1950 Depression Screening 1950 Hepatitis C Screening 1950 Osteoporosis Screening-Bone Density Scan 1950 DTaP/Tdap/Td Vaccine (1 - Tdap) 1963 Hepatitis B Screening 1970 Zoster Vaccine (1 of 2) 2002 Well Visit 65+ 2017 Covid-19 Vaccine (3 - 2023-2 5 season) 2024 08/14/2020, 07/24/2020 Fall Risk Assessment 02/09/2024 02/08/2023 Breast Cancer Screening-Mammogram 08/20/2024 08/21/2023, 07/25/2022, 06/26/2021, Additional history exists Influenza Vaccine (Season Ended) 2025 03/28/2020, 03/23/2019, 03/02/2018 Pneumococcal vaccine 65+ Completed 03/23/2019, 07/2017 Procedures Procedure Name Priority Date/Time Associated Diagnosis [...] for her next mammogram. Electronically signed by: Judy Simon M.D. Narrative 08/21/2023 1:30 PM CDT EXAMINATION: SCREENING MAMMOGRAM [...] Recently Relevant to Health Maintenance Insurance MEDICARE [employer] [facility] SENIOR SUPPLEMENT MEDICARE [facility] Advance Directives For more information, please contact: [phone] * Full Code (Latest Code Status on File) Date Activated Date Inactivated Comments 02/06/2023 3:41 PM 02/08/2023 6:08 PM Care Teams Gas Plant Dispatcher Relationship Specialty Start Date End Date Bridget House MD PCP - General 04/01/17
--- OUTSIDE RECORDS SUMMARY | 2024-09-27 11:00 | XMS_ITS | Clinical Summary ---
Author Organization [facility] Address [address] [place] [address] Phone Care Team Providers Care Typing Section Chief Name Role Phone EDGARD MARROQUIN, GUILLERMO Parikh Unavailable [phone] Reason for Visit and Chief Complaint gynecologic annual exam - The Chief Complaint is: WWE pt states no c/o Problems Includes: Problems addressed during this encounter and other active Problems All Visits Onset Date Resolved Date Provider Condition S tatus Chronic Obstructive Pulmonary Disease Mild 04/10/2014 GUILLEMRO RENE MD Active Last Documented On 4 1:05PM ; [facility] 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 Follow up with chiropractic for clavicle. - Last Documented On 04/21/2017 11:01AM ; [facility] Instructions to patient Instructions for patient : B reast Self Exam discussed Last Documented On 7 10:46AM ; [facility] Intervention and counseling on cessation of tobacco use Last Documented On 7 10:50AM ; [facility] Education and Decision Aids were provided during visit for: STD screening offered and de clined Last Documented On 7 10:46AM ; [facility] Bone Mineral Density Screeni ng guidelines reviewed Last Documented On 7 10:46AM ; [facility] Patient Education: Daily stepan cium and vitamin D Last Documented On 7 10:46AM ; [facility] Patient Education: weight be aring exercise Last Documented On 7 10:46AM ; [facility] Colonoscopy screening guidel freddy discussed Last Documented On 7 10:46AM ; [facility] Assessments Includes: Assessments from this encounter Findings - Fibrocystic disease of breast - Last Documented On 04/21/2017 11:01AM ; [facility] - NORMAL FEMALE EXAM - Last Documented On 04/21/2017 11:01AM ; [facility] - Screening Malig. Neoplasm Rectum - Last Documented On 04/21/2017 11:01AM ; [facility] Instructions Includes: Instructions from this encounter Instructions to patient Instructions for patient : B reast Self Exam discussed Last Documented On 7 10:46AM ; [facility] Intervention and counseling on cessation of tobacco use Last Documented On 7 10:50AM ; [facility] Education and Decision Aids were provided during visit for: STD screening offered and de clined Last Documented On 7 10:46AM ; [facility] Bone Mineral Density Screeni ng guidelines reviewed Last Documented On 7 10:46AM ; [facility] Patient Education: Daily stepan cium and vitamin D Last Documented On 7 10:46AM ; [facility] Patient Education: weight be aring exercise Last Documented On 7 10:46AM ; [facility] Colonoscopy screening guidel freddy discussed Last Documented On 7 10:46AM ; [facility] Medical Equipment - Implanted Devices Includes: Current Devices No Medical Equipment Recorded Medications Includes: Medications discussed during this encounter and other current Medications Current Medications (continue as prescribed) Levothyroxine Sodium 137 MCG Oral Capsule 03/01/2019 Provider: Diagnosis: Last Documented On 9 8:40AM By SENDY CALERO ; [facility] Metoprolol Succinate ER 50 M G Oral Tablet Extended Release 24 Hour 03/01/2019 Provider: Diagnosis: Last Documented On 9 8:39AM By SENDY CALERO ; [facility] Pravastatin Sodium 40 MG OR TABS 03/11/2012 Provider : ANA MARÍA CONWAY MD Diagnosis: Last Documented On 03/26/2012 3:01PM By SALIMA SAMANIEGO LPN ; [facility] Benazepril HCl 20 MG OR TABS 01/22/2012 Provider: ANA MARÍA CONWAY MD Diagnosis: Last Documented On 03/26/2012 3:02PM By SALIMA SAMANIEGO LPN ; [facility] Triamterene-HCTZ 37.5-25 MG OR TABS 01/22/2012 Provi william: ANA MARÍA CONWAY MD Diagnosis: Last Documented On 03/26/2012 3:02PM By SALIMA SAMANIEGO LPN ; [facility] amLODIPine Besylate 5 MG OR TABS 01/22/2012 Provider : ANA MARÍA CONWAY MD Diagnosis: Last Documented On 03/26/2012 3:02PM By SALIMA SAMANIEGO LPN ; [facility] Past Medications on file Sulfamethoxazole-TMP DS 800-160 MG Tablet 04/17/2015 - 04/24/2015 Provider: MANNY MCKEON Diagnosis: Carbuncle, unspecified One tablet twice a day take as directed w/food Last Documented On 5 9:42AM By MANNY KLEIN ; [facility] Spiriva HandiHaler 18 MCG IN CAPS 03/21/2014 - 06/19/2014 Provider: ANA MARÍA CONWAY MD Diagnosis: Last Documented On 04/10/2014 8:28AM By SALIMA SAMANIEGO LPN ; [facility] CeleBREX 200 MG OR CAPS 02/26/2014 - 03/28/2014 Provid er: ANA MARÍA CONWAY MD Diagnosis: Last Documented On 04/10/2014 8:28AM By SALIMA SAMANIEGO LPN ; [facility] Medications Administered Includes: Administered Medications from this encounter No Administered Medications Recorded Vital Signs Includes: Vital Signs from this encounter Vital Name 04/21/2017 10:28A Blood Pressure Sitting (mmHg) 140/70 Height (in) 65.25 Weight (lb) 154.125 Body Mass Index (kg/m2) 25.5 Body Surface Area (m2) 1.8 Last Documented: On 04/21/2017 10:36A M ; [facility] Results Includes: Results discussed during this encounter No Results Recorded For Specified Dates History of Present Illness Includes: History of Present Illness from this encounter HPI ANDRES SALMON is a 66 year old female. - Medication list reviewed. Social History Description Last Updated Not exercising regularly 03/01/2019 Last Documented On 7 10:25AM ; [facility] Tobacco use 04/21/2017 Last Documented On 7 11:01AM ; [facility] Marital history 04/21/2017 Last Documented On 7 11:01AM ; [facility] Personal history retired 12/13 [employer] 04/17/2015 Last Documented On 7 10:25AM ; [facility] Alcohol use occ 04/17/2015 Last Documented On 7 10:25AM ; [facility] Caffeine use DRINKS 2-3 CUPS OF COFFEE EVERY DAY ~DRINKS TEA AND SODA RARELY 04/17/2015 Last Documented On 7 10:25AM ; [facility] Education history 04/17/2015 Last Documented On 7 10:25AM ; [facility] In monogamous relationship 04/17/2015 Last Documented On 7 10:25AM ; [facility] Is a smoker about one to two packs per week now. She has smoked since 18 years old 04/17/2015 Last Documented On 7 10:25AM ; [facility] Not using drugs 04/17/2015 Last Documented On 7 10:25AM ; [facility] Sexually active 04/17/2015 Last Documented On 7 10:25AM ; [facility] Sexually active with 1 partners in the l ast year 04/17/2015 Last Documented On 7 10:25AM ; [facility] Cigarette smokin.5 pack-years histor y 04/17/2015 Last Documented On 7 10:25AM ; [facility] Smoking Status Unknown Procedures and Surgical History Includes: Procedures from this encounter Procedures Code Diagnosis Performing Provider Service L ocation Service Date intervention and counseling on cessation of tobacco use 4000F Last Documented On 7 10:50AM ; [facility] Clinical summary provided to patient Last Documented On 7 10:46AM ; [facility] vaginal Pap smear 85723 Last Documented On 7 10:46AM ; [facility] FIT Test-Fecal Occult negative 76202 Last Documented On 7 10:46AM ; [facility] Surgical History Last Updated History of total abdominal hysterectomy DUB uterine hypertrophy 04/17/2015 Last Documented On 7 10:25AM ; [facility] Surgical / procedural history 04/17/2015 Last Documented On 7 10:25AM ; [facility] History of tubal ligation 1976 4 Last Documented On 7 10:25AM ; [facility] Bilateral salpingo-oophorectomy 03/14/20 11 Last Documented On 7 10:25AM ; [facility] History of hysterectomy 02/14/19962010 Last Documented On 7 10:25AM ; [facility] Medical History Includes: Medical History addressed during this encounter Description Last Updated History of menopause --- stopped patches in November 2011 10/01/2021 Last Documented On 7 10:25AM ; [facility] Result: normal AMH 10/01/2021 Last Documented On 7 10:25AM ; [facility] Patient recently had a dexa scan 04/25/2014 at [facility] with 0.5, -0.4, and 0.5; 10/01/2021 Last Documented On 7 10:25AM ; [facility] PRIMARY CARE PROVIDER : DR. ANA MARÍA CONWAY Retired, has seen his replacement Dr. House, not sure if going to stay there 04/21/2017 Last Documented On 7 11:01AM ; [facility] A colonoscopy was performed [address] Shearer--- repeat in 5-7 years. Scheduled for 06/201704/21/2017 Last Documented On 7 11:01AM ; [facility] Last mammogram date: 04/01/2017 04/21/20 17 Last Documented On 7 11:01AM ; [facility] Last pap smear date 04/18/2016 7 Last Documented On 7 11:01AM ; [facility] Sexually active 04/10/2014 Last Documented On 7 10:25AM ; [facility] Result: normal AND HPV NEGATIVE 03/26/20 12 Last Documented On 7 10:25AM ; [facility] Vaginal delivery x 2 03/15/2011 Last Documented On 7 10:25AM ; [facility] History of abnormal Pap smear of cervix CRYOSURGERY A LONG TIME AGO 03/15/2011 Last Documented On 7 10:25AM ; [facility] History of cervical dysplasia 03/14/2011 Last Documented On 7 10:25AM ; [facility] History of vaginitis OCCASSIONALLY 03/14 Last Documented On 7 10:25AM ; [facility] LMP: 03/14/1996 03/14/2011 Last Documented On 7 10:25AM ; [facility] Family History Includes: Family History addressed during this encounter Description Last Updated Family history of malignant female breas t neoplasm paternal cousin 10/01/2021 Last Documented On 7 10:25AM ; [facility] Maternal history of diabetes mellitus mo m 04/21/2017 Last Documented On 7 11:01AM ; [facility] Paternal history of diabetes mellitus da d 04/21/2017 Last Documented On 7 11:01AM ; [facility] Paternal history of family history of he art disease Dad 04/21/2017 Last Documented On 7 11:01AM ; [facility] Family history of hypertension PATIENT, mom, dad, brother 04/21/2017 Last Documented On 7 11:01AM ; [facility] Family history of pure hypercholesterole rocky Pt 04/21/2017 Last Documented On 7 11:01AM ; [facility] Maternal history of uterine cancer MOTHE R 04/21/2017 Last Documented On 7 11:01AM ; [facility] Review of Systems Includes: Review of Systems from this encounter Gastrointestinal: No nausea, no vomiting, and no hematochezia. Genitourinary: No change in urinary frequency and no feelings of urinary urgency. No urinary loss of control and no incontinence. No dysuria, no stress incontinence, does not feel like bladder is falling out, no vaginal itching or burning, and no vaginal pain during intercourse. No unexplained vaginal bleeding. Musculoskeletal: No arthralgias and [...] Active Last Documented On 2 10:38AM ; [facility] Encounters Encounter Provider Location Date Check-In Time Check-Out Time Diagnosis ANNUAL RN PATIENT SERVICES EXAM GUILLERMO RENE MD [facility] MEMORY CARE DIRECTOR 04/21/20 17 10:24AM 11:04AM Breast Fibrocystic Disease,Screeni ng Malig. Neoplasm Rectum,Normal Female Exam Insurance Includes: Active Insurance Policies Plan Name Member ID Group # Subscriber Relationship Effect venice Dates 1 - MEDICARE PART A CLAIMS/NGS [id number] ANDRES Pozo 2 - [facility] INS [id number] ANDRES Pozo Clinical Notes Includes: Clinical Notes from this encounter No Clinical Notes Recorded
--- OUTSIDE RECORDS SUMMARY | 2024-09-27 11:00 | XMS_ITS | Encounter Summary ---
Author Organization [facility] Address [address] [place] [address] Phone Care Team Providers Care Rock Crusher Name Role Phone Bridget House MD Primary Care Provider Reason for Visit * Reason Comments Medication Refill Encounter Details Date Type Department Care Team (Late st Contact Info) Description 02/10/2021 Refill [facility] - Gastroenterology - [address] [place] [address] Gilda Gruber Kathe, PAC [address] [place] [address] Medication Refill Social History Tobacco Use Types Packs/Day Years Used Date Smoking Tobacco: Every Day Cigarettes 0.8 50 Smokeless Tobacco: Never Alcohol Use Standard Drinks/Week Comments Yes 1 (1 standard drink = 0.6 oz pur e alcohol) Wine AUDIT-C Answer Date Recorded Q1: How often do you have a drink containing alc ohol? 2-4 times a month 09/21/2019 Q2: How many drinks containi ng alcohol do you have on a typical day when you are drinking? 1 or 2 09/21/2019 Q3: How often do you have si x or more drinks on one occasion? Never 09/21/2019 Sexually Active Control Partners Comments Yes Comments No Sex and Gender Information Value Date Recorded Sex Assigned at Not on file Legal Sex Female 7:26 PM CDT Gender Identity Not on file Sexual Orientation Not on file documented as of this encounter Miscellaneous Notes * Telephone Encounter - Shilpi Alva RN - 02/11/2021 11:51 AM CDT Medication [facility] and [facility] medication standing order for pediatric and adult patients. documented in this encounter Plan of Treatment Not on file documented as of this encounter Visit Diagnoses Not on filedocumented in this encounter Care Teams Rock Crusher Relationship Specialty Start Date End Date Bridget House MD PCP - General Family Medicine 06/22/17 documented as of this encounter
--- OUTSIDE RECORDS SUMMARY | 2024-09-27 11:00 | XMS_ITS | Clinical Summary ---
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 GUILLERMO TURNER MD Active Last Documented On 3 2:49PM ; [facility] Plan of Treatment No Plan of Treatment Recorded Assessments Includes: Assessments from this encounter No Assessments Recorded Medical Equipment - Implanted Devices Includes: Current Devices No Medical Equipment Recorded Medications Includes: Medications discussed during this encounter and other current Medications Current Medications (continue as prescribed) Levothyroxine Sodium 137 MCG Oral Capsule 03/01/2019 Provider: Diagnosis: Last Documented On 9 8:40AM By SENDY CALERO ; [facility] Metoprolol Succinate ER 50 M G Oral Tablet Extended Release 24 Hour 03/01/2019 Provider: Diagnosis: Last Documented On 9 8:39AM By SENDY CALERO ; [facility] Pravastatin Sodium 40 MG OR TABS 03/11/2012 Provider : ANA MARÍA CONWAY MD Diagnosis: Last Documented On 03/26/2012 3:01PM By SALIMA SAMANIEGO LPN ; [facility] Benazepril HCl 20 MG OR TABS 01/22/2012 Provider: ANA MARÍA CONWAY MD Diagnosis: Last Documented On 03/26/2012 3:02PM By SALIMA SAMANIEGO LPN ; [facility] Triamterene-HCTZ 37.5-25 MG OR TABS 01/22/2012 Provi william: ANA MARÍA CONWAY MD Diagnosis: Last Documented On 03/26/2012 3:02PM By SALIMA SAMANIEGO LPN ; [facility] amLODIPine Besylate 5 MG OR TABS 01/22/2012 Provider : ANA MARÍA CONWAY MD Diagnosis: Last Documented On 03/26/2012 3:02PM By SALIMA SAMANIEGO LPN ; [facility] Medications Administered Includes: Administered Medications from this [...] SEASONAL Allergy 04/18/2016 Active Last Documented On 10:38AM ; [facility] Encounters Encounter Provider Location Date Check-In Time Check-Out Time Diagnosis * PHONE CALL GUILLERMO RENE MD 07/28/2022 5:35PM 11:59PM Insurance Includes: Active Insurance Policies Plan Name Member ID Group # Subscriber Relationship Effect venice Dates 1 - MEDICARE PART A CLAIMS/NGS [id number] ANDRES SALMON Self 2 - [employer] [id number] ANDRES SALMON Self Clinical Notes Includes: Clinical Notes from this encounter * Progress note Date Encounter Last Documented by 07/28/2022 * PHONE CALL Last documented on 07/28/2022; 5:37 PM, GUILLERMO RENE MD; [facility] Plan StartCited - Inconclusive mammogram Radiology @ other/*MAMMOGRAPHY: (Left)Unilateral Diagnostic Mammography Instructions: needs left dx stan with Additional images/ultrasounds if indicated; 07/25/22 left asymmetry seen: needs add'l views and u/s now; Please send a copy to PCP: Dr House, also. EndCited
--- OUTSIDE RECORDS SUMMARY | 2024-09-27 11:00 | XMS_ITS | Clinical Summary ---
Author Organization [facility] Address [address] [place] [address] Phone Care Team Providers Care Truer Pinion And Wheel Name Role Phone EDGARD MARROQUIN, GUILLERMO Parikh Unavailable [phone] Reason for Visit and Chief Complaint The Chief Complaint is: WWE.. 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 - Last Documented On 10/01/2021 11:14AM ; [facility] Pending Tests Order Diagnosis Results Due Ordering P rovider Radiology @ other [facility] (to be scheduled) Asymptomatic menopausal state 10/15/21 GUILLERMO RENE MD Last Documented On 3 3:29PM ; [facility] Instructions to patient Instructions for patient : B reast Self Exam discussed Last Documented On 2 10:57AM ; [facility] Intervention and counseling on cessation of tobacco use Last Documented On 2 11:01AM ; [facility] Education and Decision Aids were provided during visit for: STD screening offered and de clined Last Documented On 2 10:57AM ; [facility] Bone Mineral Density Screeni ng guidelines reviewed Last Documented On 2 10:57AM ; [facility] Patient Education: Daily stepan cium and vitamin D Last Documented On 2 10:57AM ; [facility] Patient Education: weight be aring exercise Last Documented On 2 10:57AM ; [facility] Colonoscopy screening guidel freddy discussed Last Documented On 2 10:57AM ; [facility] Assessments Includes: Assessments from this encounter Findings - Fibrocystic disease of breast - Last Documented On 10/01/2021 11:14AM ; [facility] - NORMAL FEMALE EXAM - Last Documented On 10/01/2021 11:14AM ; [facility] - Screening Malig. Neoplasm Rectum - Last Documented On 10/01/2021 11:14AM ; [facility] Instructions Includes: Instructions from this encounter Instructions to patient Instructions for patient : B reast Self Exam discussed Last Documented On 2 10:57AM ; [facility] Intervention and counseling on cessation of tobacco use Last Documented On 2 11:01AM ; [facility] Education and Decision Aids were provided during visit for: STD screening offered and de clined Last Documented On 2 10:57AM ; [facility] Bone Mineral Density Screeni ng guidelines reviewed Last Documented On 2 10:57AM ; [facility] Patient Education: Daily stepan cium and vitamin D Last Documented On 2 10:57AM ; [facility] Patient Education: weight be aring exercise Last Documented On 2 10:57AM ; [facility] Colonoscopy screening guidel freddy discussed Last Documented On 2 10:57AM ; [facility] Medical Equipment - Implanted Devices Includes: Current Devices No Medical Equipment Recorded Medications Includes: Medications discussed during this encounter and other current Medications Discontinued / Stopped on this date on 03/01/2019 Omeprazole 20 MG Oral Tablet Delayed Release Provider: Diagnosis: Last Documented On 2 10:38AM By Catalino CALERO ; [facility] Carbidopa-Levodopa ER 50-200 MG OR TBCR P alejoder: ANA MARÍA CONWAY MD Diagnosis: Last Documented On 2 10:38AM By Catalino Mims Magdalene ; [facility] Current Medications (continue as prescribed) Levothyroxine Sodium 137 MCG Oral Capsule 03/01/2019 Provider: Diagnosis: Last Documented On 9 8:40AM By SENDY BEDOYA Magdalene ; [facility] Metoprolol Succinate ER 50 M G Oral Tablet Extended Release 24 Hour 03/01/2019 Provider: Diagnosis: Last Documented On 9 8:39AM By SENDY BEDOYA Magdalene ; [facility] Pravastatin Sodium 40 MG OR TABS 03/11/2012 Provider : ANA MARÍA CONWAY MD Diagnosis: Last Documented On 03/26/2012 3:01PM By SALIMA SAMANIEGO LPN ; [facility] Benazepril HCl 20 MG OR TABS 01/22/2012 Provider: ANA MARÍA CONWAY MD Diagnosis: Last Documented On 03/26/2012 3:02PM By SALIMA SAMANIEGO LPN ; [facility] Triamterene-HCTZ 37.5-25 MG OR TABS 01/22/2012 Provi william: ANA MARÍA CONWAY MD Diagnosis: Last Documented On 03/26/2012 3:02PM By SALIMA SAMANIEGO LPN ; [facility] amLODIPine Besylate 5 MG OR TABS 01/22/2012 Provider : ANA MARÍA CONWAY MD Diagnosis: Last Documented On 03/26/2012 3:02PM By SALIMA SAMANIEGO LPN ; [facility] Past Medications on file Sulfamethoxazole-TMP DS 800-160 MG Tablet 04/17/2015 - 04/24/2015 Provider: MANNY MCKEON Diagnosis: Carbuncle, unspecified One tablet twice a day take as directed w/food Last Documented On 5 9:42AM By MANNY KLEIN ; [facility] Spiriva HandiHaler 18 MCG IN CAPS 03/21/2014 - 06/19/2014 Provider: ANA MARÍA CONWAY MD Diagnosis: Last Documented On 04/10/2014 8:28AM By SALIMA SAMANIEGO LPN ; [facility] CeleBREX 200 MG OR CAPS 02/26/2014 - 03/28/2014 Provid er: ANA MARÍA CONWAY MD Diagnosis: Last Documented On 04/10/2014 8:28AM By SALIMA SAMANIEGO LPN ; [facility] Medications Administered Includes: Administered Medications from this encounter No Administered Medications Recorded Vital Signs Includes: Vital Signs from this encounter Vital Name 10/01/2021 10:40A Blood Pressure Sitting L 124/79 BP Cuff Size Regular Temp-Temporal 98 Height (in) 65 Weight (lb) 121.6 Body Mass Index (kg/m2) 20.2 Body Surface Area (m2) 1.6 Last Documented: On 10/01/2021 10:42A M ; [facility] Results Includes: Results discussed during this encounter No Results Recorded For Specified Dates History of Present Illness Includes: History of Present Illness from this encounter DEANNE SALMON is a 71 year old female. - Allergy list reviewed - Medication list reviewed Social History Description Last Updated Current smoker 10/01/2021 Last Documented On 2 11:14AM ; [facility] Tobacco use 03/01/2019 Last Documented On 2 10:29AM ; [facility] Smoking status : Current everyday smoker NTQS 03/01/2019 Last Documented On 2 10:29AM ; [facility] Exercising regularly 03/01/2019 Last Documented On 2 10:29AM ; [facility] Marital history 04/21/2017 Last Documented On 2 10:29AM ; [facility] Alcohol use occ 04/17/2015 Last Documented On 2 10:29AM ; [facility] Cigarette smoking 04/17/2015 Last Documented On 2 10:29AM ; [facility] In monogamous relationship 04/17/2015 Last Documented On 2 10:29AM ; [facility] Is a smoker about one to two packs per week now. She has smoked since 18 years old 04/17/2015 Last Documented On 2 10:29AM ; [facility] Not using drugs 04/17/2015 Last Documented On 2 10:29AM ; [facility] Sexually active 04/17/2015 Last Documented On 2 10:29AM ; [facility] Sexually active with 1 partners in the l ast year 04/17/2015 Last Documented On 2 10:29AM ; [facility] Cigarette smokin.5 pack-years histor y 04/17/2015 Last Documented On 2 10:29AM ; [facility] Procedures and Surgical History Includes: Procedures from this encounter Procedures Code Diagnosis Performing Provider Service L ocation Service Date intervention and counseling on cessation of tobacco use 4000F Last Documented On 2 11:01AM ; [facility] use of tobacco assessment performed 1000F Last Documented On 2 10:32AM ; [facility] Clinical summary provided to patient Last Documented On 2 10:57AM ; [facility] vaginal Pap smear : not done due to age 6089 Last Documented On 2 11:03AM ; [facility] FIT Test-Fecal Occult negative 45815 Last Documented On 2 10:57AM ; [facility] Surgical History Last Updated History of total abdominal hysterectomy DUB uterine hypertrophy 04/17/2015 Last Documented On 2 10:29AM ; [facility] Surgical / procedural history 04/17/2015 Last Documented On 2 10:29AM ; [facility] History of tubal ligation 1976 4 Last Documented On 2 10:29AM ; [facility] Bilateral salpingo-oophorectomy 03/14/20 11 Last Documented On 2 10:29AM ; [facility] History of hysterectomy 02/14/19962010 Last Documented On 2 10:29AM ; [facility] Medical History Includes: Medical History addressed during this encounter Description Last Updated Primary Care Provider: Dr. House 10/01 Last Documented On 2 11:14AM ; [facility] History of menopause --- sto pped patches in November 2011 ~Pre-Diabetic as of March 2021 10/01/2021 Last Documented On 2 11:14AM ; [facility] Result: normal 10/01/2021 Last Documented On 2 11:14AM ; [facility] Patient recently had a dexa scan 03/03/19 10/01/2021 Last Documented On 2 11:14AM ; [facility] Patient [facility] [facility] 0.4, -0.1, and 1.5; 10/01/2021 Last Documented On 2 10:29AM ; [facility] Last mammogram date: 06/26/2021 [facility] 10/01 Last Documented On 2 11:14AM ; [facility] A colonoscopy was performed 2011 ; with Dr Shearer WNL per pt 03/01/2019 Last Documented On 2 10:29AM ; [facility] 2 03/01/2019 Last Documented On 2 10:29AM ; [facility] Para 2 03/01/2019 Last Documented On 2 10:29AM ; [facility] Last pap smear date 04/21/2017 9 Last Documented On 2 10:29AM ; [facility] Sexually active 04/10/2014 Last Documented On 2 10:29AM ; [facility] Not using contraception 03/26/2012 Last Documented On 2 10:29AM ; [facility] Result: normal AND HPV NEGATIVE 03/26/20 12 Last Documented On 2 10:29AM ; [facility] Vaginal delivery x 2 03/15/2011 Last Documented On 2 10:29AM ; [facility] A mammogram was performed at [facility] 011 Last Documented On 2 10:29AM ; [facility] History of abnormal Pap smear of cervix CRYOSURGERY A LONG TIME AGO 03/15/2011 Last Documented On 2 10:29AM ; [facility] History of cervical dysplasia 03/14/2011 Last Documented On 2 10:29AM ; [facility] History of vaginitis OCCASSIONALLY 03/14 Last Documented On 2 10:29AM ; [facility] LMP: 03/14/1996 03/14/2011 Last Documented On 2 10:29AM ; [facility] Family History Includes: Family History addressed during this encounter Description Last Updated Family history of malignant female breast neoplasm paternal cousin late 60's 10/01/2021 Last Documented On 2 11:14AM ; [facility] Maternal history of diabetes mellitus mo m 04/21/2017 Last Documented On 2 10:29AM ; [facility] Paternal history of diabetes mellitus da d 04/21/2017 Last Documented On 2 10:29AM ; [facility] Paternal history of family history of he art disease Dad 04/21/2017 Last Documented On 2 10:29AM ; [facility] Family history of hypertension PATIENT, mom, dad, brother 04/21/2017 Last Documented On 2 10:29AM ; [facility] Family history of pure hypercholesterole rocky Pt 04/21/2017 Last Documented On 2 10:29AM ; [facility] Maternal history of uterine cancer MOTHE R 04/21/2017 Last Documented On 2 10:29AM ; [facility] Diabetes mellitus 04/17/2015 Last Documented On 2 10:29AM ; [facility] Family history of diabetes mellitus FAMI LY HX OF 03/14/2011 Last Documented On 2 10:29AM ; [facility] Heart disease FAMILY HX OF 03/14/2011 Last Documented On 2 10:29AM ; [facility] Review of Systems Includes: Review of Systems [...] Active Last Documented On 2 10:38AM ; [facility] Encounters Encounter Provider Location Date Check-In Time Check-Out Time Diagnosis WELL WOMAN - ESTABLISHED PT GUILLERMO RENE MD [facility] 10/02/19 22 10:28AM 11:24AM Screening Malig. Neoplasm Rectum,Normal Female Exam,Breast Fibrocystic Disease Insurance Includes: Active Insurance Policies Plan Name Member ID Group # Subscriber Relationship Effect venice Dates 1 - MEDICARE PART A CLAIMS/NGS [id number] ANDRES Pozo 2 - [employer] [id number] ANDRES Pozo Clinical Notes Includes: Clinical Notes from this encounter No Clinical Notes Recorded
--- OUTSIDE RECORDS SUMMARY | 2024-09-27 11:00 | XMS_ITS | Clinical Summary ---
Author Organization [facility] Address [address], [address] [address] Phone Care Team Providers Care Amusement Ride Operator Name Role Phone Bridget House MD Primary Care Provider Allergies Active Allergy Reactions Criticality Noted Date Comments Other-Environmental Allergen (Not Found In Search) Other (see Comments) 09/21/2019 Seasonal Medications metoprolol Succinate (TOPROL-XL) 50 MG TABLET SR 24 HR Take 50 mg by mouth daily. Active amLODIPine (NORVASC) 5 MG Tablet Take 5 mg by mouth daily. Active triamterene-hyd rochlorothiazid e (MAXZIDE) 37.5-25 MG Tablet Take 1 Tab by mouth daily. Active levothyroxine (SYNTHROID) 100 MCG Tablet Take 100 mcg by mouth daily. Active pravastatin (PRAVACHOL) 40 MG Tablet Take 40 mg by mouth daily. Active Multiple Vitamin (MULTIVITAMINS PO) Take by mouth daily. Active CALCIUM-VITAMIN D PO Take by mouth daily. Active Probiotic Product (PROBIOTIC DAILY PO) Take 1 Tab by mouth daily. Active Acetaminophen (TYLENOL ARTHRITIS PAIN PO) Take 650 mg by mouth daily. Active BL CALCIUM-MAGNESI UM-ZINC PO Take by mouth. Active levothyroxine (SYNTHROID) 112 MCG Tablet TAKE 1 TABLET BY MOUTH EVERY MORNING 07/08/2021 Active benazepril (LOTENSIN) 20 MG Tablet Take 20 mg by mouth daily. 05/13/2021 Active Active Problems Problem Noted Date Diagnosed Date Irritable bowel syndrome with diarrhea 0 Colon polyps 09/21/2019 Gastroesophageal reflux disease 09/21/2019 Immunizations Immunization Administration Dates Next Due Covid-19, Mrna, Lnp-s, Pf, 30 Mcg/0.3 Ml Dose (P fizer) 08/14/2020,07/24/2020 Influenza Vaccine, Quadrivalent, PF 03/28/2020 Influenza, Trivalent, Adjuvanted, PF 03/02/2018 Influenza, high-dose, trivalent, PF 03/23/2019 Pneumococcal Vaccine - 13 Valent 03/02/2018 Pneumococcal Vaccine Adult - 23 Valent 9 Family History Medical History Relation Name Comments Kidney Cancer Brother 1 Lung Cancer Brother 2 Congestive Heart Failure Father Diabetes Father Heart Attack Father No Known Problems Maternal Grandfather No Known Problems Maternal Grandmother Congestive Heart Failure Mother Diabetes Mother Heart Attack Mother Uterine Cancer Mother No Known Problems Paternal Grandfather No Known Problems Paternal Grandmother Lung Cancer Paternal Uncle No Known Problems Sister Relation Name Status Comments Brother 1 Alive Brother 2 Father Maternal Grandfather Maternal Grandmother Mother Paternal Grandfather Paternal Grandmother Paternal Uncle Sister Social History Tobacco Use Types Packs/Day Years Used Date Smoking Tobacco: Every Day Cigarettes 0.8 50 Smokeless Tobacco: Never Tobacco Cessation:Ready to Q uit: Yes; Counseling Given: Yes Alcohol Use Standard Drinks/Week Comments Yes 1 [...] on file Sexual Orientation Not on file Last Filed Vital Signs Vital Sign Reading Time Taken Comments Blood Pressure 122/76 07/30/2021 8:38 AM CONCEPTOR Pulse 66 07/30/2021 8:38 AM CONCEPTOR Temperature 36.7 C (98 F) 07/30/2021 8:38 AM CONCEPTOR Respiratory Rate 18 07/30/2021 8:38 AM CONCEPTOR Oxygen Saturation 99% 07/30/2021 8:38 AM CONCEPTOR Inhaled Oxygen Concentration - - Weight 57.3 kg (126 lb 4.8 oz) 07/30/2021 8:38 A M CONCEPTOR Height 165.1 cm (5' 5 ) 09/26/2020 9:05 AM CDT Body Mass Index 21.02 09/26/2020 9:05 AM CDT Plan of Treatment Health Maintenance Due Date Last Done Comments Hepatitis C Virus (HCV) Screening 1950 TdaP Immunization 1950 Cologuard 2002 Immunochemical Fecal Occult Blood 2002 Zoster Immunization (1 of 2) 2002 Colonoscopy 06/24/2022 06/24/2017, 12/05/2011 Colorectal Cancer Screening 06/24/2022 Influenza Immunization (#1) 2024 11/2 06/2020, 03/28/2020, 03/23/2019, Additional history exists SARS-COV-2 Immunization ( season) 2024 04/21/2021, 08/14/2020, 07/24/2020 Respiratory Syncytial Virus (RSV) Immunization (Adult) (1 - 1-dose 75+ series) 2027 06/24/2017, 12/05/2011 Pneumococcal Immunization (50+ years) Completed 03/23/2019, 03/02/2018 Pneumococcal Immunization Combined Discontinued 03/23/2019, 03/02/2018 Hepatitis B Immunization Aged Out No longer eligible based on patient's age to complete this topic Meningococcal Immunization (ACWY) Aged Out No longer eligible based on patient's age to complete this topic Rotavirus Immunization Aged Out No lo nger eligible based on patient's age to complete this topic Procedures Procedure Name Priority Date/Time Associated Diagnosis Comments HM COLONOSCOPY Routine 12/05/2011 from Last 3 Months or Most Recently Relevant to Health Maintenance Results * HM COLONOSCOPY (12/05/2011) us Anish T Kllebron DO PROCEDURE/MINOR SURGICAL ORDERA BLES Final Result from Last 3 Months or Most Recently Relevant to Health Maintenance Insurance MEDICARE [facility] Care Teams Amusement Ride Operator Relationship Specialty Start Date End Date Bridget House MD PCP - General Family Medicine 06/22/17
[2024-09-27 14:03] LABS: Alanine Aminotransferase 15 U/L (6-35); Albumin Level 4.5 g/dL (3.5-5.1); Alkaline Phosphatase 64 U/L (38-126); Anion Gap 10 mmol/L (4-12); Aspartate Amino Transferase 31 U/L (14-36); Bilirubin,Total 0.6 mg/dL (0.2-1.3); Blood Urea Nitrogen 15 mg/dL (7-17); Calcium 9.6 mg/dL (8.4-10.2); Carbon Dioxide 28 mmol/L (22-30); Chloride 103 mmol/L (98-107); Estimated Glomerular Filt Rate > 60; Glucose 101 mg/dL (65-110); Potassium 4.4 mmol/L (3.4-5.0); Sodium 141 mmol/L (137-145)
[2024-09-27 15:36] LABS: Free T4 Free Thyroxine Reflex 1.74 ng/dL (0.78-2.19)
[2024-09-27 16:08] LABS: Hemoglobin A1C 5.7 % (<5.7)
[2024-09-27 16:27] LABS: Total Triiodothyronine (T3) 1.16 NG/ML (0.97-1.69)
== END 2024-09-27 09:50 | disposition home or self-care (01) ==
LOC: ANHGOSHLAB 09:51
PROVIDERS: PCP Family Medicine; Visit Provider Family Medicine
DX: E03.9 Hypothyroidism, unspecified (principal); I10 Essential (primary) hypertension; R73.03 Prediabetes
CPT/HCPCS: 36415; 80053; 83036; 84439; 84443; 84480

== ENCOUNTER 2024-10-19 10:49 | Outpatient (CLI) | payer MEDICARE, SELFPAY ==
--- NOTE | ~2024-10-19 | CT_ITS ---
CT of the Abdomen: Indication: Abnormal findings on diagnostic imaging, abnormal soft tissue adjacent to pancreatic tail Technique: 2.5 mm axial scans were obtained through the abdomen prior to and following intravenous a dministration of 100 cc of Omnipaque 350. Dose reduction technique was used on this scan by utilizing automated exposure control and iterative reconstruction technique. The dose-length product (DLP) was 324.93 mGy-cm. COMPARISON: 01/09/2023 Findings: Scans through the lung bases are unremarkable. The liver, spleen, pancreas, gallbladder, and adrenal glands are within normal limits. 5 mm nonobstru cting left renal stone present. There is mild right hydronephrosis with apparent tapering at the UPJ region. There are extensive atherosclerotic calcifications of the aorta. No lymphadenopathy. Visualized bowel loops are unremarkable. No ascites. Impression: No abnormal pancreatic or peripancreatic lesion identified on this exam. 5 mm nonobstructing left renal stone. Mild right hydronephrosis with tapering at the UPJ region. Reviewed, dictated and finalized at [facility]. Impression: No abnormal pancreatic or peripancreatic lesion identified on this exam. 5 mm nonobstructing left renal stone. Mild right hydronephrosis with tapering at the UPJ region.
[2024-10-19 11:07] LABS: Estimated Glomerular Filt Rate > 60
== END 2024-10-19 10:50 | disposition home or self-care (01) ==
PROVIDERS: PCP Family Medicine; Visit Provider Family Medicine
DX: N20.0 Calculus of kidney (principal); N13.30 Unspecified hydronephrosis
CPT/HCPCS: 74170; Q9967

== ENCOUNTER 2024-10-23 13:20 | Emergency (ER) | payer MEDICARE, SELFPAY ==
--- NOTE | 2024-10-23 13:25 | ED.WOUNDLAC ---
HPI - Wound/Laceration General Chief Complaint: Wound/Laceration Stated Complaint: Cut Finger Time Seen by Provider: 10/23/24 13:25 Source: patient Mode of arrival: ambulatory Limitations: no limitations History of Present Illness HPI narrative: 74-year-old female presents with laceration to left index finger. Bleeding on arrival. Patient was using a rotary knife and cut herself while cutting viri fabric. CMS intact. Tetanus up-to-date. All systems reviewed and negative except as noted above. Related Data Home Medications ?Medication ?Instructions ?Recorded ?Confirmed ?Last Taken ?Type cetirizine 10 mg tablet (Zyrtec) 10 mg PO DAILY PRN 03/16/23 09/27/24 Unknown History Allergies Allergy/AdvReac Type Severity Reaction Status Date / Time No Known Allergies Allergy Verified 10/23/24 13:39 Review of Systems Review of Systems: CONSTITUTIONAL: Denies fever, chills, or sweats. EYES: Denies visual changes, redness, or discharge. ENT: Denies rhinorrhea, congestion, sore throat, or otalgia. CARDIOVASCULAR: Denies chest pain, palpitations, or edema. RESPIRATORY: Denies cough or dyspnea. GASTROINTESTINAL: Denies abdominal pain, nausea, vomiting, or diarrhea. GENITOURINARY: Denies dysuria or hematuria. SKIN: Denies rash or itching. Reports laceration to left index finger MUSCULOSKELETAL: Denies back pain, joint pain, or myalgia. NEUROLOGIC: Denies headache, numbness, or weakness. PSYCHIATRIC: Denies anxiety or depression. All other systems reviewed are negative, except as documented in HPI. [facility] Past Medical History Medical History History of pheochromocytoma (~01/2023) Osteopenia Pheochromocytoma (~01/2023) Environmental allergies History of colon polyps COVID-19 Chronic neck and back pain (~03/2022) Irritable bowel syndrome with diarrhea Right carpal tunnel syndrome Schatzki's ring RLS (restless legs syndrome) Hiatal hernia Pre-diabetes Hypothyroidism (acquired) GERD without esophagitis Dyslipidemia Essential (primary) hypertension Surgical History Surgical History History of tubal ligation (~1976) History of suburethral sling procedure (~1994) 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 Hx of hysterectomy, total (~1994) Family History Family History Other Hypertension Social History Social History Smoking packs per day: 0.75 Smoking cigarettes per day: 15.0 Years smoked: 50 Smoking pack-years: 37.50 Smoking status: Current every day smoker Tobacco type: cigarettes Second hand tobacco smoke exposure: Yes Alcohol intake: current Alcohol use details: socially-2 glasses of wine/month Substance use: never Substance use type: does not use Lack of Transportation: No Lack of Food: Never True Current Housing: I Have Housing Concerned About Future Housing: No Difficulty Paying Gas/Electric Bills: No Difficulty Paying for Meds: No Currently Unemployed: No Education: High School Diploma/GED Difficulty w/ Childcare or Family Care: No Living arrangements: with family Additional living arrangements comments: Occupation/Education: retired Gender identity (if verbalized by the patient): Female Sexual Orientation (if Verbalized by the Patient): Straight or Heterosexual Spiritual care concerns: No Agree to blood products: Yes Comments At time of signature, agree with nursing past medical, surgical, social and family history. There is no relevant family history pertinent to the presenting complaint. Exam Narrative: GENERAL: This is a well-nourished, well-developed patient, in no apparent distress. HEAD: normocephalic, atraumatic. EYES: PERRL. Sclera clear/white. Vision is grossly intact. EARS: External ears normal NOSE: External nose normal NECK: Neck supple, non-tender without lymphadenopathy, masses or thyromegaly. CARDIOVASCULAR: Regular rate and rhythm without murmurs, gallops, or rubs. RESPIRATORY: Clear to auscultation. Breath sounds equal bilaterally. No wheezes, rales, or rhonchi. SKIN: warm, Dry, with no suspicious lesions or rash, good texture and turgor. Flap-like Laceration to distal aspect of left index finger approximately 2 cm diameter. Laceration extends from medial aspect cuticle of left index finger to finger pad NEURO: awake, alert, and oriented to person, place and time. There were no obvious focal neurologic abnormalities. EXTREMITIES: No joint tenderness, effusion, or edema noted. Course Course Level of Care: Express Care Visit Vital Signs Vital signs: Vital Signs Temperature 36.6 C 10/23/24 13:30 Pulse Rate 77 10/23/24 13:30 Respiratory Rate 16 10/23/24 13:30 Blood Pressure 147/88 H 10/23/24 13:30 Pulse Oximetry 100 10/23/24 13:30 Temperature 36.6 C 10/23/24 13:30 Pulse Rate 77 10/23/24 13:30 Respiratory Rate 16 10/23/24 13:30 Blood Pressure 147/88 H 10/23/24 13:30 Pulse Oximetry 100 10/23/24 13:30 Reviewed Procedures Laceration Laceration 1: Date: 10/23/24 Time: 13:45 Site: upper extremity (Left index finger) Side (If applicable): left Size (cm): 2 Description: flap Depth: simple, single layer Local Anesthetic: lidocaine 1% Amount of anesthesia used (mL): 3 Pre-repair: wound explored and irrigated ====== Skin Level ====== Skin layer closed with: nylon Size (cm): 5-0 Number of sutures: 7 Technique: simple, interrupted ====== Subcutaneous Layer ====== ====== Muscle Layer ====== ====== Tendon Layer ====== MDM - Wound/Laceration MDM Narrative Medical decision making narrative: Laceration repaired with sutures. No complications. Patient prescribed antibiotic as precaution prevent infection. CMS intact at time of discharge. Discharge Plan Discharge Clinical Impression: Laceration of left index finger Qualifiers: Encounter type: initial encounter Damage to nail status: with damage Foreign body presence: without foreign body Qualified Code(s): S61.311A - Laceration without foreign body of left index finger with damage to nail, initial encounter Patient Disposition: Home Condition: Stable Instructions: Antibiotic Form, Care For Your Stitches (ED), Finger Laceration (ED) Additional Instructions: Keep wound clean and dry. May wash with a mild soap and water. Do not pull or pick at sutures. Follow-up in 10 days to have sutures removed. Take antibiotic as prescribed to prevent infection. Take Tylenol every 6-8 hours as needed for pain. Patient Language: Slovenian Prescriptions: New cephalexin 500 mg capsule 500 mg PO BID 7 Days Qty: 14 0RF No Action cetirizine [Zyrtec] 10 mg tablet 10 mg PO DAILY PRN amlodipine 10 mg tablet 10 mg PO DAILY Qty: 90 1RF benazepril 20 mg tablet 20 mg PO DAILY Qty: 90 1RF metoprolol succinate 100 mg tablet extended release 24 hr 100 mg PO DAILY Qty: 90 1RF pravastatin 40 mg tablet 40 mg PO QHS Qty: 90 1RF Rx Instructions: along with pravastatin 20 mg p.o. q.h.s.(takes pravastatin 60 mg p.o. q.h.s.) pravastatin 20 mg tablet See Rx Instructions .ROUTE .COMPLEX Qty: 90 1RF Dose Instruction: TAKE 1 TABLET BY MOUTH DAILY AT BEDTIME ALONG WITH PRAVASTATIN 40MG(60MG TOTAL AT BEDTIME) Rx Instructions: TAKE 1 TABLET BY MOUTH DAILY AT BEDTIME ALONG WITH PRAVASTATIN 40MG(60MG TOTAL AT BEDTIME) levothyroxine 112 mcg tablet 112 mcg PO QAM Qty: 90 1RF Follow-up/Referrals: PHYSICIAN,CONCRETE POURING SUPERVISOR [Primary Care Provider] - Time of Disposition: 13:57
[2024-10-23 13:30] VITALS: BP 147/88; PULSE 77; RESP 16; TEMP 36.6; O2SAT 100
[2024-10-23] MEDS: LIDOCAINE 1% LOCAL INJ 2 ML AMPUL 4 ML INFILTRATE (13:37)
--- NOTE | 2024-10-23 13:50 | PC.NURSE ---
HOME CARE MANAGER RN at bedside placing sutures.
== END 2024-10-23 14:12 | disposition home or self-care (01) ==
PROVIDERS: Emergency Provider Nurse Practitioner Family
DX: S61.211A Laceration without foreign body of left index finger without damage to nail, initial encounter (principal); W27.8XXA Contact with other nonpowered hand tool, initial encounter; F17.210 Nicotine dependence, cigarettes, uncomplicated; M85.80 Other specified disorders of bone density and structure, unspecified site; I10 Essential (primary) hypertension; G25.81 Restless legs syndrome; R73.03 Prediabetes; E03.9 Hypothyroidism, unspecified; E78.5 Hyperlipidemia, unspecified; Z90.710 Acquired absence of both cervix and uterus
CPT/HCPCS: 12001; 99213; G0463; J2003

== ENCOUNTER 2024-11-02 10:23 | Emergency (ER) | payer MEDICARE, SELFPAY ==
[2024-11-02 10:33] VITALS: BP 110/74; PULSE 73; RESP 16; TEMP 36.9; O2SAT 100
--- NOTE | 2024-11-02 13:01 | ED_ITS ---
HPI - Wound/Laceration General Chief Complaint: Wound/Laceration Stated Complaint: SUTURE REMOVAL Time Seen by Provider: 11/02/24 11:00 Source: patient and RN notes reviewed Mode of arrival: ambulatory Limitations: no limitations History of Present Illness HPI narrative: 74-year-old female presents Express Care complaining of suture removal. She has suture plates 10 days ago and was told to get a removed and after 10 days.. Patient was placed on antibiotics. Denies any sign of infection. Related Data Home Medications ?Medication ?Instructions ?Recorded ?Confirmed ?Last Taken ?Type cetirizine 10 mg tablet (Zyrtec) 10 mg PO DAILY PRN 03/16/23 09/27/24 Unknown History Allergies Allergy/AdvReac Type Severity Reaction Status Date / Time No Known Allergies Allergy Verified 11/02/24 10:39 Review of Systems Review of Systems: CONSTITUTIONAL: Denies fever, chills, or sweats. EYES: Denies visual changes, redness, or discharge. ENT: Denies rhinorrhea, congestion, sore throat, or otalgia. CARDIOVASCULAR: Denies chest pain, palpitations, or edema. RESPIRATORY: Denies cough or dyspnea. GASTROINTESTINAL: Denies abdominal pain, nausea, vomiting, or diarrhea. GENITOURINARY: Denies dysuria or hematuria. SKIN: Denies rash or itching. Positive for laceration and sutures. MUSCULOSKELETAL: Denies back pain, joint pain, or myalgia. NEUROLOGIC: Denies headache, numbness, or weakness. PSYCHIATRIC: Denies anxiety or depression. All other systems reviewed are negative, except as documented in HPI. [facility] Past Medical History Medical History History of pheochromocytoma (~01/2023) Osteopenia Pheochromocytoma (~01/2023) Environmental allergies History of colon polyps COVID-19 Chronic neck and back pain (~03/2022) Irritable bowel syndrome with diarrhea Right carpal tunnel syndrome Schatzki's ring RLS (restless legs syndrome) Hiatal hernia Pre-diabetes Hypothyroidism (acquired) GERD without esophagitis Dyslipidemia Essential (primary) hypertension Surgical History Surgical History History of tubal ligation (~1976) History of suburethral sling procedure (~1994) 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 Hx of hysterectomy, total (~1994) Family History Family History Other Hypertension Social History Social History Smoking packs per day: 0.75 Smoking cigarettes per day: 15.0 Years smoked: 50 Smoking pack-years: 37.50 Smoking status: Current every day smoker Tobacco type: cigarettes Second hand tobacco smoke exposure: Yes Alcohol intake: current Alcohol use details: socially-2 glasses of wine/month Substance use: never Substance use type: does not use Lack of Transportation: No Lack of Food: Never True Current Housing: I Have Housing Concerned About Future Housing: No Difficulty Paying Gas/Electric Bills: No Difficulty Paying for Meds: No Currently Unemployed: No Education: High School Diploma/GED Difficulty w/ Childcare or Family Care: No Living arrangements: with family Additional living arrangements comments: Occupation/Education: retired Gender identity (if verbalized by the patient): Female Sexual Orientation (if Verbalized by the Patient): Straight or Heterosexual Spiritual care concerns: No Agree to blood products: Yes Comments At the time of my signature, I reviewed and agree with the nursing past medical, surgical, social, and family history. There is no relevant family history pertinent to the patient complaint. Exam Narrative: GENERAL: This is a well-nourished, well-developed adult, in no apparent distress. They are non ill-appearing, nontoxic appearing. HEAD: normocephalic, atraumatic. EYES: Sclera clear/white. Conjunctiva normal. Vision is grossly intact. Extraocular movements intact EARS: External ears normal, Hearing grossly intact. NOSE: External nose radha SKIN: Left index finger: 7 sutures intact to laceration. No evidence of infection, no redness, swelling, exudate, or pain. There is ecchymoses. NEURO: awake, alert, and oriented to person, place and time. There were no obvious focal neurologic abnormalities. Course Course Emergency Course: Portions of this record may have been created with voice recognition software Level of Care: Express Care Visit Vital Signs Vital signs: Vital Signs Temperature 98.4 F 11/02/24 10:33 Pulse Rate 73 11/02/24 10:33 Respiratory Rate 16 11/02/24 10:33 Blood Pressure 110/74 11/02/24 10:33 Pulse Oximetry 100 11/02/24 10:33 Temperature 98.4 F 11/02/24 10:33 Pulse Rate 73 11/02/24 10:33 Respiratory Rate 16 11/02/24 10:33 Blood Pressure 110/74 11/02/24 10:33 Pulse Oximetry 100 11/02/24 10:33 Reviewed Procedures Other Procedure Procedure 1: Other Procedure: Seven sutures removed to patient's left index finger. Patient tolerated procedure well. MDM - Wound/Laceration MDM Narrative Medical decision making narrative: Seven sutures successfully removed from patient's left index finger. Laceration is healing well. No evidence of infection. Discussed physical exam findings. Advised supportive measures and signs/symptoms to go to the ER. Pt is appropriate for outpt treatment and f/u. Differential Diagnosis Differential diagnosis: Likely laceration, abrasion and other (Cellulitis) Critical Care Time Critical Care Time Critical Care Time: No Discharge Plan Discharge Clinical Impression: Encounter for removal of sutures Patient Disposition: Home Condition: Stable Instructions: Laceration (ED) Additional Instructions: Continue to wash the wound daily with mild soap and water. Keep the wound covered and dry until the wound has scabbed over. Your Sutures are removed today. For signs of infection such as increased redness, swelling, drainage, fevers, or pain. He signs occur please call your primary care provider or go to the ER. Follow-up with PCP in 3-5 days. Patient Language: Romanian Prescriptions: No Action cephalexin 500 mg capsule 500 mg PO BID 7 Days Qty: 14 0RF cetirizine [Zyrtec] 10 mg tablet 10 mg PO DAILY PRN amlodipine 10 mg tablet 10 mg PO DAILY Qty: 90 1RF benazepril 20 mg tablet 20 mg PO DAILY Qty: 90 1RF metoprolol succinate 100 mg tablet extended release 24 hr 100 mg PO DAILY Qty: 90 1RF pravastatin 40 mg tablet 40 mg PO QHS Qty: 90 1RF Rx Instructions: along with pravastatin 20 mg p.o. q.h.s.(takes pravastatin 60 mg p.o. q.h.s.) pravastatin 20 mg tablet See Rx Instructions .ROUTE .COMPLEX Qty: 90 1RF Dose Instruction: TAKE 1 TABLET BY MOUTH DAILY AT BEDTIME ALONG WITH PRAVASTATIN 40MG(60MG TOTAL AT BEDTIME) Rx Instructions: TAKE 1 TABLET BY MOUTH DAILY AT BEDTIME ALONG WITH PRAVASTATIN 40MG(60MG TOTAL AT BEDTIME) levothyroxine 112 mcg tablet 112 mcg PO QAM Qty: 90 1RF Follow-up/Referrals: Magalis House MD [Primary Care Provider] - Time of Disposition: 11:07
== END 2024-11-02 11:14 | disposition home or self-care (01) ==
PROVIDERS: PCP Family Medicine
DX: S61.211D Laceration without foreign body of left index finger without damage to nail, subsequent encounter (principal); X58.XXXD Exposure to other specified factors, subsequent encounter; I10 Essential (primary) hypertension; E78.5 Hyperlipidemia, unspecified; K21.9 Gastro-esophageal reflux disease without esophagitis; E03.9 Hypothyroidism, unspecified; R73.03 Prediabetes; G25.81 Restless legs syndrome; M85.80 Other specified disorders of bone density and structure, unspecified site; Z86.16 Personal history of COVID-19; Z90.710 Acquired absence of both cervix and uterus
CPT/HCPCS: 99211; G0463

== ENCOUNTER 2025-04-14 09:08 | Outpatient (CLI) | payer MEDICARE, SELFPAY ==
--- OUTSIDE RECORDS SUMMARY | 2025-04-14 09:44 | XMS_ITS | Encounter Summary ---
Author Organization [facility] Address [address] [place] [address] Phone Care Team Providers Care [employer] Consultant Name Role Phone Bridget House MD Primary Care Provider Reason for Visit * Reason Comments Medication Refill Encounter Details Date Type Department Care Team (Late st Contact Info) Description 02/10/2021 Refill [facility] - Gastroenterology - [place] [address] [place] [address] Gilda Gruber Kathe, PAC [address] [place] [address] Medication Refill Social History Tobacco Use Types [...] AM CDT Medication refilled and signed per [facility] [place] [place] chronic medication standing order for pediatric and adult patients. documented in this encounter Plan of Treatment Not on file documented as of this encounter Visit Diagnoses Not on filedocumented in this encounter Care Teams [employer] Consultant Relationship Specialty Start Date End Date Bridget House MD PCP - General Family Medicine 06/22/17 documented as of this encounter
--- OUTSIDE RECORDS SUMMARY | 2025-04-14 09:44 | XMS_ITS | Clinical Summary ---
Author Organization [facility] Address [address], [address] [address] Phone Care Team Providers Care Transcribing Operator Head Name Role Phone Bridget House MD Primary [...] Comments Blood Pressure 122/76 07/30/2021 8:38 AM STRUCTURAL MANAGER Pulse 66 07/30/2021 8:38 AM STRUCTURAL MANAGER Temperature 36.7 C (98 F) 07/30/2021 8:38 AM STRUCTURAL MANAGER Respiratory Rate 18 07/30/2021 8:38 AM STRUCTURAL MANAGER Oxygen Saturation 99% 07/30/2021 8:38 AM STRUCTURAL MANAGER Inhaled Oxygen Concentration - - Weight 57.3 kg (126 lb 4.8 oz) 07/30/2021 8:38 A M STRUCTURAL MANAGER Height 165.1 cm (5' 5) 09/26/2020 9:05 AM CDT Body Mass Index 21.02 09/26/2020 9:05 AM CDT Plan of Treatment Health Maintenance Due Date Last Done Comments Hepatitis C Virus (HCV) Screening 1950 TdaP Immunization 1950 Cologuard 1997 Immunochemical Fecal Occult Blood 1997 Zoster Immunization (1 of 2) 2002 Medicare Initial AWV [id number] 05/01/2018 Colonoscopy 06/24/2022 06/24/2017, 12/05/2011 Colorectal Cancer Screening 06/24/2022 Influenza Immunization (#1) 2025 11/2 06/2020, 03/28/2020, 03/23/2019, Additional history exists SARS-COV-2 Immunization ( season) 2025 04/21/2021, 08/14/2020, 07/24/2020 Respiratory Syncytial Virus (RSV) Immunization (Adult) (1 - 1-dose 75+ series) 2027 Pneumococcal Immunization (50+ years) Completed 03/23/2019, 03/02/2018 Pneumococcal Immunization Combined Discontinued 03/23/2019, 03/02/2018 Hepatitis B Immunization Aged Out No longer eligible based on patient's age to complete this topic Human Papillomavirus (HPV) Immunization Aged Out No longer eligible based on patient's age to complete this topic Meningococcal Immunization (ACWY) Aged Out No longer eligible based on patient's age to complete this topic Rotavirus Immunization Aged Out No lo nger eligible based on patient's age to complete this topic Procedures Procedure Name Priority Date/Time Associated Diagnosis Comments COLONOSCOPY Routine 12/05/2011 from Last 3 Months or Most Recently Relevant to Health Maintenance Results * HM COLONOSCOPY (12/05/2011) Anish Walls DO PROCEDURE/MINOR SURGICAL ORDERA BLES Final Result from Last 3 Months or Most Recently Relevant to Health Maintenance Insurance MEDICARE [employer] [facility] Care Teams Transcribing Operator Head Relationship Specialty Start Date End Date Bridget House MD PCP - General Family Medicine 06/22/17
--- OUTSIDE RECORDS SUMMARY | 2025-04-14 09:44 | XMS_ITS | Clinical Summary ---
Author Organization [facility] Address [address] [place] [address] Care Team Providers Care Construction Project Administrator Name Role Phone Bridget House MD Primary [...] 1 tablet (112 mcg total) by mouth motor vehicle technician before breakfast Active pravastatin (PRAVACHOL) 20 mg [...] on file Legal Sex Female 1:42 AM CANCELING MACHINE OPERATOR Gender Identity Female 02/20/2023 10:57 AM CDT [...] CDT Inhaled Oxygen Concentration - - Weight 57.6 kg (127 lb) 09/30/2024 8:45 AM CDT Height 165.1 cm (5' 5) 09/30/2024 8:45 AM CDT Body Mass Index 21.13 09/30/2024 8:45 AM CDT Plan of Treatment Health Maintenance Due Date Last Done Comments Colon Cancer Screening-Colonoscopy 1950 Depression Screening 1950 Hepatitis C Screening 1950 Osteoporosis Screening-Bone Density Scan 1950 DTaP/Tdap/Td Vaccine (1 - Tdap) 1963 Hepatitis B Screening 1970 Zoster Vaccine (1 of 2) 2002 Well Visit 65+ 2017 Fall Risk Assessment 02/09/2024 02/08/2023 Covid-19 Vaccine (3 - 2024-2 6 season) 2025 08/14/2020, 07/24/2020 Influenza Vaccine (#1) 2025 , 03/23/2019, 03/02/2018 Breast Cancer Screening-Mammogram 09/30/2025 09/30/2024, 08/21/2023, 07/25/2022, Additional history exists Pneumococcal vaccine 65+ Completed 03/23/2019, 07/2017 Procedures Procedure Name Priority Date/Time Associated Diagnosis Comments SCREENING MAMMOGRAM BILATERAL W TIMMY Schedule Routine, Read Routine (OP Routine) 09/30/2024 8:54 AM CDT Screening mammogram, encounter for from Last 3 Months or Most Recently Relevant to Health Maintenance Results * Screening Mammogram Bilateral W Timmy (09/30/2024 8:54 AM CDT) Anatomical Region Laterality Modality Breast Bilateral Mammography Impressions 09/30/2024 9:46 AM CDT There is no mammographic evidence of malignancy. A 1 year screening mammogram is recommended. BI-RADS: 1 - Negative. The patient has been or will be contacted. The patient will be entered into a reminder system with a target due date of 1 year for her next mammogram. Narrative 09/30/2024 9:46 AM CDT EXAMINATION: SCREENING MAMMOGRAM BILATERAL W TIMMY ORDERING HEALTHCARE PROVIDER: SELF SCREENING MAMMOGRAM HISTORY: Routine screening mammography. COMPARISON: 08/21/23, 08/19/2022, 07/25/2022, 06/26/2021, 06/06/2020, 04/07/2019 TECHNIQUE: CC [...] Recently Relevant to Health Maintenance Insurance MEDICARE [facility] AET SENIOR SUPPLEMENT MEDICARE [facility] Advance Directives For more information, please contact: [phone] * Full Code (Latest Code Status on File) Date Activated Date Inactivated Comments 02/06/2023 3:41 PM 02/08/2023 6:08 PM Care Teams Construction Project Administrator Relationship Specialty Start Date End Date Bridget House MD PCP - General 04/01/17
[2025-04-14 11:07] LABS: Hematocrit 44.7 % (37.0-47.0); Hemoglobin 14.5 g/dL (12.0-15.0); Immature Granulocyte Percent A 0.2 % (0-0.5); Lymphocytes Absolute Auto 2.27 K/mm3 (0.9-3.2); Mean Corpuscular HGB Conc 32.4 g/dl (32-36); Mean Corpuscular Hemoglobin 30.7 pg (26-34); Mean Corpuscular Volume 94.5 fl (80-100); Nucleated Red Blood Cells Absolute Auto 0.000 K/mm3 (0.0-0.012); Nucleated Red Blood Cells Perc 0.0 % (0.0-0.2); Platelet Count Result 201 k/mm3 (150-375); Red Blood Count 4.73 M/mm3 (4.2-5.4); White Blood Count 6.1 K/mm3 (4.5-10.0)
[2025-04-14 11:48] LABS: Thyroid Stimulating Hormone Reflex 1.510 uIU/mL (0.465-4.68)
[2025-04-14 12:33] LABS: Alanine Aminotransferase 23 U/L (6-35); Albumin Level 4.6 g/dL (3.5-5.1); Alkaline Phosphatase 72 U/L (38-126); Anion Gap 8 mmol/L (4-12); Aspartate Amino Transferase 29 U/L (14-36); Bilirubin,Total 0.7 mg/dL (0.2-1.3); Blood Urea Nitrogen 13 mg/dL (7-17); Calcium 10.0 mg/dL (8.4-10.2); Carbon Dioxide 26 mmol/L (22-30); Chloride 103 mmol/L (98-107); Cholesterol 198 mg/dL (0-200); Estimated Glomerular Filt Rate > 60; Glucose 111 mg/dL (65-110); HDL Direct 53 mg/dL; Potassium 4.5 mmol/L (3.4-5.0); Sodium 137 mmol/L (137-145); Total Protein 7.6 g/dL (6.3-8.2); Triglycerides 181 mg/dL (<150)
[2025-04-14 12:41] LABS: Hemoglobin A1C 6.0 % (<5.7)
[2025-04-14 13:32] LABS: Vitamin B12 430.0 pg/mL (239-931)
== END 2025-04-14 09:09 | disposition home or self-care (01) ==
PROVIDERS: PCP Family Medicine; Visit Provider Family Medicine
DX: E78.5 Hyperlipidemia, unspecified (principal); E03.9 Hypothyroidism, unspecified; I10 Essential (primary) hypertension; R73.03 Prediabetes; E55.9 Vitamin D deficiency, unspecified; E53.8 Deficiency of other specified B group vitamins
CPT/HCPCS: 36415; 80053; 80061; 82306; 82607; 83036; 84443; 85025

== ENCOUNTER 2025-04-14 09:30 | Outpatient (CLI) | payer MEDICARE, SELFPAY ==
--- NOTE | ~2025-04-14 | XR_ITS ---
EXAMINATION: XR knee RT min 4V DATE: 04/14/2025 09:50 INDICATION: Pain TECHNIQUE: Right knee were obtained. COMPARISON: None. FINDINGS: Mild tricompartmental osteoarthritic appearing degenerative changes noted. The bones also appear slightly osteopenic. No acute or aggressive bony or soft tissue process seen. IMPRESSION: 1. Osteoarthritic appearing degenerative changes. For persisting or worsening knee pain refractory to conservative therapy, consider correlation with MRI for optimal sensitivity. Reviewed, dictated and finalized at location A. T CHIEF IMPRESSION: 1. Osteoarthritic appearing degenerative changes. For persisting or worsening k nee pain refractory to conservative therapy, consider correlation with MRI for optimal sensitivity.
== END 2025-04-14 09:31 | disposition home or self-care (01) ==
LOC: GOSHIMG 09:31
PROVIDERS: PCP Family Medicine; Visit Provider Family Medicine
DX: M17.11 Unilateral primary osteoarthritis, right knee (principal); G89.29 Other chronic pain
CPT/HCPCS: 73564

== ENCOUNTER 2025-04-19 10:15 | Outpatient (CLI) | payer MEDICARE, SELFPAY ==
--- NOTE | ~2025-04-19 | DEXA_ITS ---
Bone Density Report Name: ANDRES SALMON Age: 74 Sex: Female Ethnicity: White Date of : 1950 Indication: postmenopausal; screening for osteoporosis; inflammatory bowel disease; hysterectomy; Referring Provider: MEGA SLOAN Study: Bone densitometry was performed. Exam Date: April 19, 2025 Accession number: [id number] Bone Density: Region BMD T-score Z-score Classification AP Spine(L1-L4) 1.112 0.6 2.9 Normal Femoral Neck (Left) 0.715 -1.2 0.8 Osteopenia Total Hip (Left) 0.959 0.1 1.8 Normal Femoral Neck (Right) 0.736 -1.0 0.9 Normal Total Hip (Right) 0.943 0.0 1.7 Normal Total Hip Mean 0.951 0.1 1.8 Normal World Health Organization criteria for BMD impression classify patients as: Normal (T-score at or above -1.0), Osteopenia (T-score between -1.0 and -2.5), or Osteoporosis (T-score at or below -2.5). 10-year Fracture Risk(1): Major Osteoporotic Fracture 9.9% Hip Fracture 1.5% Reported Risk Factors: [place] (), Neck BMD=0.715, BMI=24.3 (1) FRAX(R) Version 3.08. Fracture probability calculated for an untreated patient. Fracture probability may be lower if the patient has received treatment. Previous Exams: Region Exam Age BMD T-score BMD Change BMD Change Date g/cm2 vs Baseline vs Previous Total Hip(Left) 04/19/2025 74 0.959 0.1 0.066 (7.4%)* 0.066 (7.4%)* 03/31/2023 72 0.893 -0.4 Total Hip(Right) 04/19/2025 74 0.943 0.0 0.057 (6.4%)* 0.057 (6.4%)* 03/31/2023 72 0.886 -0.5 *Denotes significance at 95% confidence level, LSC for Total Hip = 0.027 g/cm2 Clinical Information Provided by Patient: Has used the following medications: Vitamin D, Calcium Has the following medical conditions: Inflammatory bowel diseases, Hysterectomy Patient maximum height was 65.0 Menopause Age: 47 No regular weight bearing exercise Drinks caffeinated beverages Onset of menses at age 13 Number of children 4 Impression: The patient has low bone mass, based on the Left Femoral Neck T-score. The patient has an estimated ten-year risk of hip fracture of 1.5% and an estimated ten-year risk of major fracture of 9.9%, based on the WHO FRAX algorithm. No significant bone loss was observed. Discussion: BONE DENSITY IS LOW AT ONE OR MORE SKELETAL SITES. This patient's lowest T-score is low at one or more skeletal sites. It meets the World Health Organization's (WHO) criteria for ?low bone mass? (T-score between -1.0 and -2.5). The patient's 10-year risk of fracture as calculated by FRAX is less than the threshold where pharmacological therapy is recommended by the National Osteoporosis Foundation (NOF). However, all treatment decisions require clinical judgment and consideration of individual patient factors, including patient preferences, comorbidities, previous drug use, risk factors not captured in the FRAX model (e.g., frailty, falls, vitamin D deficiency, increased bone turnover, interval significant decline in bone density) and possible under or overestimation of fracture risk by FRAX. The patient should follow a healthful lifestyle (good nutrition with adequate calcium and vitamin D, and appropriate weight-bearing exercise). Follow-Up: Consider repeating this study in 2 to 3 years to reassess this patient's status, or sooner if there is some new clinical indication. Reported by: NIRMALA on 04/19/2025 11:03:00 AM. Reviewed, dictated and finalized at location A.
--- OUTSIDE RECORDS SUMMARY | 2025-04-19 14:33 | XMS_ITS | Encounter Summary ---
Author Organization [facility] Address [address] [place] [address] Phone Care Team Providers Care Cane Packer Name Role Phone Bridget House MD Primary Care Provider Reason for Visit * Reason Comments Medication Refill Encounter Details Date Type Department Care Team (Late st Contact Info) Description 02/10/2021 Refill [facility] - Gastroenterology - [place] [address] [place] [address] Gilda Gruber Kathe, PAC [address] [place] [address] Medication Refill Social History Tobacco Use Types [...] AM CDT Medication refilled and signed [facility] medication standing order for pediatric and adult patients. documented in this encounter Plan of Treatment Not on file documented as of this encounter Visit Diagnoses Not on filedocumented in this encounter Care Teams Cane Packer Relationship Specialty Start Date End Date Bridget House MD PCP - General Family Medicine 06/22/17 documented as of this encounter
--- OUTSIDE RECORDS SUMMARY | 2025-04-19 14:33 | XMS_ITS | Clinical Summary ---
Author Organization [facility] Address [address], [address] [address] Phone Care Team Providers Care Senior Physician Name Role Phone Bridget House MD Primary [...] Comments Blood Pressure 122/76 07/30/2021 8:38 AM GEEK SQUAD AGENT Pulse 66 07/30/2021 8:38 AM GEEK SQUAD AGENT Temperature 36.7 C (98 F) 07/30/2021 8:38 AM GEEK SQUAD AGENT Respiratory Rate 18 07/30/2021 8:38 AM GEEK SQUAD AGENT Oxygen Saturation 99% 07/30/2021 8:38 AM GEEK SQUAD AGENT Inhaled Oxygen Concentration - - Weight 57.3 kg (126 lb 4.8 oz) 07/30/2021 8:38 A M GEEK SQUAD AGENT Height 165.1 cm (5' 5) 09/26/2020 9:05 AM CDT Body Mass Index 21.02 09/26/2020 9:05 AM CDT Plan of Treatment Health Maintenance Due Date Last Done Comments Hepatitis C Virus (HCV) Screening 1950 TdaP Immunization 1952 Varicella Immunization (1 of 2 - 13+ 2-dose series) 1965 Cologuard 1997 Immunochemical Fecal Occult Blood 1997 Zoster Immunization (1 of 2) 2002 Medicare Initial AWV [id number] 05/01/2018 Colonoscopy 06/24/2022 06/24/2017, 12/05/2011 Colorectal Cancer Screening 06/24/2022 Influenza Immunization (#1) 2025 11/06/2020, 03/28/2020, 03/23/2019, Additional history exists SARS-COV-2 Immunization (2024- season) 2025 04/21/2021, 08/14/2020, 07/24/2020 Respiratory Syncytial [...] Maintenance Results * HM COLONOSCOPY (12/05/2011) Anish Leroy Kavita DO PROCEDURE/MINOR SURGICAL ORDERA BLES Final Result from Last 3 Months or Most Recently Relevant to Health Maintenance Insurance MEDICARE AET [facility] Care Teams Senior Physician Relationship Specialty Start Date End Date Bridget House MD PCP - General Family Medicine 06/22/17
--- OUTSIDE RECORDS SUMMARY | 2025-04-19 14:33 | XMS_ITS | Clinical Summary ---
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
== END 2025-04-19 10:16 | disposition home or self-care (01) ==
LOC: ANHFOHIMG 10:18
PROVIDERS: PCP Family Medicine; Visit Provider Family Medicine
DX: M85.88 Other specified disorders of bone density and structure, other site (principal); Z78.0 Asymptomatic menopausal state
CPT/HCPCS: 77080

== ENCOUNTER 2025-04-24 12:37 | Outpatient (CLI) | payer MEDICARE, SELFPAY ==
--- NOTE | ~2025-04-24 | CT_ITS ---
EXAMINATION:CT lung screening DATE: 04/24/2025 12:53 INDICATION: Smoking history. Prior history of pulmonary nodules including 6 mm size of pleural nodule in the right lower lobe. TECHNIQUE: Computed tomography (CT) of the chest was performed without intravenous contrast. Automated exposure control and iterative reconstruction technique were employed. The dose-length product (DLP) was 55.85 mGy-cm. COMPARISON: CT lung cancer screening dated 03/13/2022., 06/26/2022. FINDINGS: Moderate centrilobular pattern of emphysema of the lungs noted again. Stable, 5 mm size subpleural nodule in the right lower lobe on image 69 of lung windows series. No new or additional pulmonary lesions are seen. No lymphadenopathy or effusion. Severe coronary artery calcification of left main, anterior descending and circumflex coronary arteries. Stable mild aneurysm of the ascending aorta measuring 4 cm in AP diameter. IMPRESSION: 1. Stable, 5 mm size subpleural nodule in the right lower lobe. Stable emphysematous changes. Continue annual screening CT. Lung RADS category 2 2. Severe multivessel coronary artery calcification. 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 Reviewed, dictated and finalized at location T. [facility]ERS IMPRESSION: 1. Stable, 5 mm size subpleural nodule in the right lower lobe. Stable emphysem atous changes. Continue annual screening CT. Lung RADS category 2 2. Severe multivessel coronary artery calcification. Stable aneurysm of the asc ending thoracic aorta 4 cm in diameter.
== END 2025-04-24 12:38 | disposition home or self-care (01) ==
LOC: MICIMG 12:38
PROVIDERS: PCP Family Medicine; Visit Provider Family Medicine
DX: Z12.2 Encounter for screening for malignant neoplasm of respiratory organs (principal); R91.1 Solitary pulmonary nodule; J43.9 Emphysema, unspecified; I25.10 Atherosclerotic heart disease of native coronary artery without angina pectoris; I71.21 Aneurysm of the ascending aorta, without rupture; Z87.891 Personal history of nicotine dependence
CPT/HCPCS: 71271

== ENCOUNTER 2025-05-26 08:45 | Outpatient (RCR) | payer MEDICARE, SELFPAY ==
--- NOTE | 2025-05-03 09:19 | OPREHPOC ---
Outpatient Therapy Plan of Care This is a Multidisciplinary Plan of Care that may contain components documented by all disciplines (PT, OT, and ST.) PT Problem 1 PT Problem #1 Knowledge Deficit PT Goal 1 Goal / Goal Update 1. Patient to demonstrate independence with HEP for improved self-reliance of symptom management. Target Visit 4 PT Problem 2 PT Problem #2 Pain PT Goal 1 Goal / Goal Update 1. Patient to decrease subjective reports of pain to <3/10 for improved ADL tolerance. 2. Pt will report no instances of knee locking / catching for 2 consecutive weeks. 3. Pt will increase LEFS score by at least 9 points in order to demonstrate the minimal clinically important difference (MCID) in functional improvement. Target Visit 8 PT Problem 3 PT Problem #3 Impaired Strength PT Goal 1 Goal / Goal Update 1. Patient will demonstrate improved strength of the bilateral hip abductors and extensors to 4+/5 on manual muscle testing in order to improve gait stability and stair negotiation. Target Visit 8 PT Problem 4 PT Problem #4 Impaired Flexibility PT Goal 1 Goal / Goal Update 1. Pt will display improvements in gastrocnemius and hamstring flexibility showing improved ROM and decreased muscle cramping Target Visit 8
--- NOTE | 2025-05-03 09:19 | PTOPEVAL1 ---
Assessment and note entered by Clarence Lopez, PT Evaluation Information Assessment Status Evaluation ICD-10 Condition Codes (PT) Pain in low back M54.50,Pain in right knee M25.561 Onset Gradual Subjective Information Pt states she has right knee pain for the last 2-3 years gradually getting worse more and affecting her ability to walk and perform ADLs and functional activities such as squatting. She states the pain comes and goes and gets locked up and that's when the pain is the most intense. Pt states she additionally has chronic back pain but this not her main concern. Pt states she has the most difficulties with her knee locking up and this most typically occurs at night. To this point pt has had x-rays showing degenerative changes and weakened bone structure. Reported Pain Level Pain Score 2: Self Report Assessment PT Clinical Summary Patient presents to physical therapy with a primary issue of R knee pain which has gradually increased over time. Patient demonstrates hip weakness, pain with locking/clicking , decreased mobility, gait deficit, and decreased flexibility that limit their ability to perform activities of daily living and functional movements. Patient will benefit from skilled physical therapy to address the above listed deficits and return to prior level of function. Home exercise program instructed and written handout provided, exercises tolerated well with no adverse effects to note post-session. Patient was educated on importance of adherence to home exercise program. Patient was also educated on anatomy, prognosis, home modalities, and plan of care. Plan of Care Interventions Electrical Stimulation,Gait Training,Hot Pack/Cold Pack,Manual Therapy,Neuro Re-education, Therapeutic Activities,Therapeutic Exercise,Other PT Services Indicated Yes Treatment Frequency and 1-2x week 8 visits Duration These treatments will address the objective and functional deficits as defined above. The patient will be advanced safely and appropriately in order for the patient to progress towards his/her prior level of function. Additional exercises will be introduced and as well as a comprehensive home exercise program upon discharge, if needed, ?to ensure carryover of functional gains achieved in the clinic. This treatment plan has been reviewed and agreement upon by the patient.
--- NOTE | 2025-05-26 09:29 | PTOPDC ---
Assessment and note entered by Clarence Lopez, PT Evaluation Information Assessment Status Discharge ICD-10 Condition Codes (PT) Pain in low back M54.50,Pain in right knee M25.561 Onset Gradual Subjective Information Pt states she feels almost fully recovered. She has much less knee pain and has noticed improvements in her muscle cramping. She states she wants to return to walking on treadmill and will continue to perform her home exercises. She states she has no other concerns at this time. Reported Pain Level Pain Score 0: Self Report Assessment PT Clinical Summary Patient's knee pain has improved overall as evidenced by advancements decreased in symptoms and increases in mobility, strength, and overall functional use of the extremity. Patient has met therapy goals and is pleased with progress made towards the remaining goals. Patient to discharge from physical therapy this date and continue with updated home exercise program as instructed. Patient to contact physical therapist or primary care provider if questions or concerns arise. Plan of Care PT Services Indicated No
== END 2025-05-26 11:48 | disposition home or self-care (01) ==
LOC: ANHGOSHPT 08:45
PROVIDERS: PCP Family Medicine; Visit Provider Family Medicine
DX: M25.561 Pain in right knee (principal); G89.29 Other chronic pain
CPT/HCPCS: 97110; 97112; 97140; 97161; 97530